=== PATIENT | female | born 1945 | race Caucasian/White ===

== ENCOUNTER 2022-06-14 11:00 | Outpatient (REF) | payer MEDICARE, SELFPAY ==
[2022-06-14 13:56] LABS: MANUAL DIFF FLAG NO
[2022-06-14 14:25] LABS: Basophils Absolute Auto 0.1 X10*3/uL (0.0-0.2); Basophils Percent Auto 1.6 % (0-2); Eosinophils Absolute Auto 0.1 X10*3/uL (0.0-0.4); Hematocrit 43.9 % (37.0-47.0); Hemoglobin 14.6 g/dl (12.0-16.0); Lymphocytes Absolute Auto 1.1 X10*3/uL (1.2-4.9); Lymphocytes Percent Auto 24.7 % (20-40); Mean Corpuscular HGB Conc 33.3 g/dl (31.0-35.0); Mean Corpuscular Hemoglobin 31.7 pg (27.0-33.0); Mean Corpuscular Volume 95.4 fL (80.0-98.0); Mean Platelet Volume 10.7 fL (9.4-12.3); Monocytes Absolute Auto 0.4 X10*3/uL (0.1-1.2); Monocytes Percent Auto 8.1 % (2-11); Neutrophils Absolute Auto 2.7 x10*3/uL (2.0-8.3); Neutrophils Percent Auto 62.6 % (45-73); Platelet Count 259 X10*3/uL (160-400); Red Cell Distribution Width 12.2 % (11.0-16.0); White Blood Count 4.3 X10*3/uL (4.8-10.8)
[2022-06-14 14:34] LABS: Cholesterol 274 mg/dL; HDL Cholesterol 74 mg/dL; LDL Cholesterol Calculated 172 mg/dl; Triglycerides 141 mg/dL
[2022-06-14 14:58] LABS: Thyroid Stimulating Hormone 1.22 uIU/mL (0.32-4.0); Vitamin D 25-OH Total 33.6 ng/mL (>30)
== END 2022-06-14 11:01 | disposition home or self-care (01) ==
LOC: HO.MANLDS 11:00
PROVIDERS: Visit Provider Internal Medicine
DX: Z00.01 Encounter for general adult medical examination with abnormal findings (principal)
CPT/HCPCS: 36415; 80061; 82306; 84443; 85025

== ENCOUNTER 2024-03-05 11:47 | Outpatient (REF) | payer MEDICARE, SELFPAY ==
[2024-03-05 13:31] LABS: MANUAL DIFF FLAG NO
[2024-03-05 13:50] LABS: Basophils Absolute Auto 0.1 X10*3/uL (0.0-0.2); Basophils Percent Auto 1.5 % (0-2); Eosinophils Percent Auto 0.8 % (0-4); Hematocrit 46.1 % (37.0-47.0); Hemoglobin 15.5 g/dl (12.0-16.0); Imm Gran Abs Auto 0.01 X10*3/uL (0.00-0.03); Imm Gran Pct Auto 0.2 % (0.0-0.4); Lymphocytes Absolute Auto 1.2 X10*3/uL (1.2-4.9); Lymphocytes Percent Auto 25.6 % (20-40); Mean Corpuscular HGB Conc 33.6 g/dl (31.0-35.0); Mean Corpuscular Hemoglobin 31.8 pg (27.0-33.0); Mean Corpuscular Volume 94.7 fL (80.0-98.0); Mean Platelet Volume 10.6 fL (9.4-12.3); Monocytes Absolute Auto 0.4 X10*3/uL (0.1-1.2); Monocytes Percent Auto 8.5 % (2-11); Neutrophils Absolute Auto 3.1 x10*3/uL (2.0-8.3); Neutrophils Percent Auto 63.4 % (45-73); Platelet Count 261 X10*3/uL (160-400); Red Blood Count 4.87 X10*6/uL (4.20-5.50); White Blood Count 4.8 X10*3/uL (4.8-10.8)
[2024-03-05 14:33] LABS: Alanine Aminotransferase 13 U/L (0-31); Albumin Level 4.4 g/dL (3.5-5.0); Alkaline Phosphatase 89 U/L (39-117); Anion Gap 13 (12-20); Aspartate Amino Transferase 26 U/L (5-31); Bilirubin Total 0.7 mg/dL (0.0-1.0); Blood Urea Nitrogen 13 mg/dL (9-16); Calcium 9.8 mg/dL (8.4-10.2); Carbon Dioxide 25 mmol/L (22-29); Chloride 108 mmol/L (96-108); Cholesterol 247 mg/dL (<200); Estimated Glomerular Filt Rate > 60; Glucose Random 91 mg/dL (60-115); HDL Cholesterol 72 mg/dL (>40); LDL Cholesterol Calculated 152 mg/dL (<100); Potassium 4.4 mmol/L (3.3-5.1); Sodium 142 mmol/L (135-145); Total Protein 7.4 g/dL (6.5-8.0); Triglycerides 116 mg/dL (<150)
[2024-03-05 15:02] LABS: Vitamin B12 458 pg/mL (200-900)
== END 2024-03-05 11:48 | disposition home or self-care (01) ==
LOC: HO.MANLDS 11:47
PROVIDERS: Visit Provider Internal Medicine
DX: Z00.01 Encounter for general adult medical examination with abnormal findings (principal); Z20.2 Contact with and (suspected) exposure to infections with a predominantly sexual mode of transmission
CPT/HCPCS: 36415; 80053; 80061; 82306; 82607; 85025

== ENCOUNTER 2025-07-09 18:14 | Outpatient (REF) | payer MEDICARE, SELFPAY ==
[2025-07-09 18:17] LABS: MANUAL DIFF FLAG NO
--- OUTSIDE RECORDS SUMMARY | 2025-07-09 18:18 | XMS_ITS | Encounter Summary ---
Author Organization [facility] Address [address] [place] [address] [address] [place] [address] Phone Care Team Providers Care Linotype Worker Name Role Phone Bigda, Willard A DO Unavailable Bigda, Willard A DO Unavailable Bigda, Willard A DO Primary Care Provider [phone] Bigda, Willard A DO Primary Care Provider [phone] Encounter Details Date Type Department Care Team (Latest Contact Info) Description 12/01/2021 Transcribe Orders Virtual Department [address] [place] [address] Maggie Obrien PA [address] [place] [address] [place] [address] Benign lipomatous neoplasm of skin and subcutaneous tissue of right leg (Primary Dx) Social History Tobacco Use Types Packs/Day Years Used Date Smoking Tobacco: Never Assessed Comments No Sex and Gender Information Value Date Recorded Sex Assigned at Not on file Legal Sex Female 10:06 PM EDT Gender Identity Not on file Sexual Orientation Straight 11/17/2021 10 :25 AM EST documented as of this encounter Plan of Treatment Not on file documented as of this encounter Results * US LOWER EXTREMITY NON-VASCULAR LIMITED (RIGHT) (12/09/2021 1:13 PM EST) Anatomical Region Laterality Modality Hip Right, Thigh Right, Knee Right, Leg Right, Ankle Right, Foot Right Ultrasound 12/09/2021 2:02 PM EST Impressions 12/09/2021 2:04 PM EST Upper right thigh lump corresponds to a probable 5 cm benign lipoma. No suspicious features. Clinical follow-up recommended. Narrative 12/09/2021 2:04 PM EST TECHNIQUE: US LOWER EXTREMITY NON-VASCULAR LIMITED (RIGHT) Focused sonographic evaluation of the upper right thigh lump COMPARISON: None. FINDINGS: At the site of concern there is a ill-defined ovoid homogeneous isoechoic soft tissue masslike area spanning 5 cm in maximal dimension. No vascularity or shadowing. Procedure Note Yousuf Ron MD - 12/09/2021 TECHNIQUE: US LOWER EXTREMITY NON-VASCULAR LIMITED (RIGHT) Focused sonographic evaluation of the upper right thigh lump COMPARISON: None. FINDINGS: At the site of concern there is a ill-defined ovoid homogeneous isoechoicsoft tissue masslike area spanning 5 cm in maximal dimension. Novascularity or shadowing. IMPRESSION: Upper right thigh lump corresponds to a probable 5 cm benign lipoma. Nosuspicious features. Clinical follow-up recommended. Maggie CRAIG IMG US EXTREMITY Final Resu lt documented in this encounter Visit Diagnoses Diagnosis Benign lipomatous neoplasm of skin and subcutaneous tissue of right leg- Primary Benign lipomatous neoplasm of skin and subcutaneous tissue of right leg documented in this encounter Care Teams Linotype Worker Relationship Specialty Start Date End Date Willard Munoz DO PCP - General Internal Medicine 08/02/17 02/28/25 Willard Munoz DO [address] [place] [address] PCP - General Internal Medicine 03/01/25 Willard Munoz DO [email or web address] Historical LMR Provider 07/24/17 Willard Munoz DO [email or web address] Internal Medicine 08/02/17 documented as of this encounter Additional Source Comments The information contained in this document represents components of the legal health record. It is not the complete legal health record.[facility]
--- OUTSIDE RECORDS SUMMARY | 2025-07-09 18:18 | XMS_ITS | Encounter Summary ---
Author Organization [facility] Address [address] [place] [address] [place] [address] Phone Care Team Providers Care Personnel Placement Specialist Name Role Phone Tammy, Willard Bruce DO Unavailable Bigda, Willard A DO Unavailable Bigda, Willard A DO Primary Care Provider [phone] Bigda, Willard A DO Primary Care Provider [phone] Encounter Details Date Type Department Care Team (Late st Contact Info) Description 03/08/2022 Transcribe Orders Virtual Department [address] [place] [address] Tammy, Willard Bruce, DO [address] [facility] [place] [address] [place] [address] [email or web address] Abnormal mammogram (Primary Dx) Social History Tobacco Use Types Packs/Day Years Used Date Smoking Tobacco: Never Alcohol Use Standard Drinks/Week Comments Not Currently 0 (1 standard drink = 0.6 oz pur e alcohol) recovering from knee surgery Comments No Sex and Gender Information Value Date Recorded Sex Assigned at Not on file Legal Sex Female 10:06 PM EDT Gender Identity Not on file Sexual Orientation Straight 11/17/2021 10 :25 AM EST documented as of this encounter Plan of Treatment Not on file documented as of this encounter Results * BI MAMMOGRAM DIAGNOSTIC WITH TOMOSYNTHESIS WITH CAD (LEFT) (03/30/2022 9:22 AM EDT) Anatomical Region Laterality Modality Breast Left Left Mammography 03/30/2022 9:35 AM EDT Impressions 03/30/2022 9:42 AM EDT Focal asymmetry in the upper left breast is very likely benign. A six-month follow-up left diagnostic mammogram is recommended. Findings and recommendation conveyed to the patient before she left the clinic. BI-RADS CATEGORY: 3 - Probably benign finding. Short interval follow up suggested. There are scattered fibroglandular densities. Narrative 03/30/2022 9:42 AM EDT HISTORY: Abnormal left screening mammogram. COMPARISON: Prior mammograms as far back as 03/16/2004 and as recent as 03/08/2022 FINDINGS: The previously described 1.4 cm asymmetry in the upper aspect of the breast on the left MLO view of 03/08/2022 does not appear to persist and likely represents superimposed fibroglandular tissue. No evidence of an underlying mass or architectural distortion. Willard Munoz DO IM MG EXAMS Final Result documented in this encounter Visit Diagnoses Diagnosis Abnormal mammogram- Primary Abnormal mammogram, unspecified Abnormal mammogram Abnormal mammogram, unspecified documented in this encounter Care Teams Personnel Placement Specialist Relationship Specialty Start Date End Date Willard Munoz DO PCP - General Internal Medicine 08/02/17 02/28/25 Willard Munoz DO [address] [place] [address] PCP - General Internal Medicine 03/01/25 Willard Munzo DO Historical LMR Provider 07/24/17 Willard Munoz DO Internal Medicine 08/02/17 documented as of this encounter Additional Source Comments The information contained in this document represents components of the legal health record. It is not the complete legal health record.[facility]
--- OUTSIDE RECORDS SUMMARY | 2025-07-09 18:18 | XMS_ITS | Encounter Summary ---
Author Organization [facility] Address [address] [place] [address] [place] [address] Phone Care Team Providers Care Timing Inspector Name Role Phone Willard Munoz DO Unavailable Deb Aguilera SKI INSTRUCTOR Unavailable Vanessa Oviedo MD Unavailable Amairani Jaimes RDCS Unavailable [email or web address] Willard Munoz DO Unavailable Tammy Willard Teo DO Primary Care Provider [phone] Willard Munoz DO Primary Care Provider [phone] Reason for Referral * Physical Therapy (Elective) - Closed Specialty Diagnoses / Procedures Referred By Josr rogers Referred To Contact Physical Therapy Diagnoses Encounter for rehabilitation Right Knee TKA on 05/14/2021 ROM , Strengthening , gait Adan Palencia MD [address] [place] [address] Phone: tel: fax: [facility] [address] [place] [address] Phone: tel: Referral ID Status Reason Start Date Expiration Date Visits Re quested Visits Authorized [id number] Closed 03/31/2021 10/08/2021 99 99 Encounter Details Date Type Department Care Team (Latest Contact Info) Description 03/31/2021 Transcribe Orders [facility] [address] [place] [address] Adan Palencia MD [facility] Luis Benitez [facility] [address] [place] [address] Encounter for rehabilitation (Primary Dx) Social History Tobacco Use Types Packs/Day Years Used Date Smoking Tobacco: Never Assessed Comments No Sex and Gender Information Value Date Recorded Sex Assigned at Not on file Legal Sex Female 10:06 PM EDT Gender Identity Not on file Sexual Orientation Straight 11/17/2021 10 :25 AM EST documented as of this encounter Plan of Treatment Scheduled Referrals Name Type Priority Associated Diagnoses Orde r Schedule Ambulatory referral to [facility] Physical Therapy Outpatient Referral Routine Encounter for rehabilitation Ordered: 03/31/2021 documented as of this encounter Visit Diagnoses Diagnosis Encounter for rehabilitation- Primary documented in this encounter Care Teams Timing Inspector Relationship Specialty Start Date End Date Willard Munoz DO PCP - General Internal Medicine 08/02/17 02/28/25 Willard Munoz DO [address] [place] [address] PCP - General Internal Medicine 03/01/25 Willard Munoz DO Historical LMR Provider 07/24/17 Deb Aguilera NP [address] [place] [address] [email or web address] Historical LMR Provider 07/24/17 2 Vanessa Oviedo MD [address] [address] [email or web address] Historical LMR Provider 07/24/17 10/16/21 Amairani Jaimes, NAA [email or web address] Historical LMR Provider 07/24/17 10/16/21 Willard Munoz DO [email or web address] Internal Medicine 08/02/17 documented as of this encounter Additional Source Comments The information contained in this document represents components of the legal health record. It is not the complete legal health record.[facility]
--- OUTSIDE RECORDS SUMMARY | 2025-07-09 18:18 | XMS_ITS | Encounter Summary ---
Author Organization [facility] Address [address] [place] [address] [place] [address] Phone Care Team Providers Care Roof Foreman Name Role Phone Tammy Willard Bruce DO Unavailable Deb Aguilera COUNTERINTELLIGENCE ANALYST Unavailable [phone] Vanessa Oviedo MD Unavailable Amairani Jaimes RDCS Unavailable [email or web address] Tammy Willard Teo DO Unavailable Willard Munoz DO Primary Care Provider [phone] Willard Munoz DO Primary Care Provider [phone] Encounter Details Date Type Department Care Team (Late st Contact Info) Description 07/26/2021 Transcribe Orders Virtual Department [address] [place] [address] Willard Munoz DO [address] [facility] [address] [place] [address] [email or web address] Breast screening (Primary Dx) Social History Tobacco Use Types [...] documented as of this encounter Results * (ABNORMAL) BI MAMMOGRAM SCREENING WITH TOMOSYNTHESIS WITH CAD (BILATERAL) (03/08/2022 8:37 AM EDT) Anatomical Region Laterality Modality Breast Left, Breast Right, Breast Bilateral Bila teral Mammography 03/08/2022 12:0 2 PM EDT Impressions 03/08/2022 12:11 PM EDT RIGHT BREAST: Negative, no evidence of malignancy. Normal interval follow-up is recommended in 12 months. LEFT BREAST: 1.4 cm asymmetry in the upper breast at 12.4 cm from the nipple on MLO view. Patient will be called back for additional imaging including spot compression in the MLO (upper breast) and the (lateral breast). Bi-RADS: BI-RADS CATEGORY: 0 - Incomplete. Need additional imaging evaluation. DENSITY: There are scattered fibroglandular densities. RIGHT RECOMMENDATION DUE DATE: 12 Months Recommendation: Right Mammography Screening LEFT RECOMMENDATION DUE DATE: 1 Month Recommendation: Left Additional Imaging Narrative 03/08/2022 12:11 PM EDT STUDY: Bilateral screening mammography with tomosynthesis and CAD TECHNIQUE: Bilateral full-field digital screening mammography is obtained and read in conjunction with computer-aided detection. Tomosynthesis as well as 2-D C view imaging were obtained. COMPARISON: Comparison made to multiple prior, most recent February 15, 2021, and most remote September 05, 2014. BREAST COMPOSITION: There are scattered areas of fibroglandular density RIGHT BREAST: No significant masses, suspicious calcifications or other abnormalities are seen. LEFT BREAST: There is approximately 1.4 cm asymmetry in the upper breast at approximately 12.4 cm from the nipple on the MLO (tomosynthesis MLO 32/76), without definite correlate on the CC view. No suspicious calcifications are seen. Procedure Note Jaida Singh MD - 03/08/2022 STUDY: Bilateral screening mammography with tomosynthesis and CAD TECHNIQUE: Bilateral full-field digital screening mammography is obtainedand read in conjunction with computer-aided detection. Tomosynthesis aswell as 2-D C view imaging were obtained. COMPARISON: Comparison made to multiple prior, most recent February 15, 2021,and most remote September 05, 2014. BREAST COMPOSITION: There are scattered areas of fibroglandulardensity RIGHT BREAST: No significant masses, suspicious calcifications or otherabnormalities are seen. LEFT BREAST: There is approximately 1.4 cm asymmetry in the upper breastat approximately 12.4 cm from the nipple on the MLO (tomosynthesis MLO32/76), without definite correlate on the CC view. No suspiciouscalcifications are seen. IMPRESSION: RIGHT BREAST: Negative, no evidence of malignancy. Normal intervalfollow-up is recommended in 12 months. LEFT BREAST: 1.4 cm asymmetry in the upper breast at 12.4 cm from thenipple on MLO view. Patient will be called back for additional imagingincluding spot compression in the MLO (upper breast) and the (lateralbreast). Bi-RADS: BI-RADS CATEGORY: 0 - Incomplete. Need additional imagingevaluation. DENSITY: There are scattered fibroglandular densities. RIGHT RECOMMENDATION DUE DATE: 12 Months Recommendation: Right Mammography Screening LEFT RECOMMENDATION DUE DATE: 1 Month Recommendation: Left Additional Imaging Willard Munoz DO IMG MG EXAMS Final Result documented in this encounter Visit Diagnoses Diagnosis Breast screening- Primary Breast screening, unspecified Breast screening Breast screening, unspecified documented in this encounter Care Teams Roof Foreman Relationship Specialty Start Date End Date Willard Munoz DO PCP - General Internal Medicine 08/02/17 02/28/25 Willard Munoz DO [address] [place] [address] PCP - General Internal Medicine 03/01/25 Willard Munoz DO Historical LMR Provider 07/24/17 Deb Aguilera NP [address] [place] [address] [email or web address] Historical LMR Provider 07/24/17 2 Vanessa Oviedo MD 22 [facility] [address] [place] [address] Historical LMR Provider 07/24/17 10/16/21 Amairani Jaimes RDCS Historical LMR Provider 07/24/17 10/16/21 Willard Munoz DO [email or web address] Internal Medicine 08/02/17 documented as of this encounter Additional Source Comments The information contained in this document represents components of the legal health record. It is not the complete legal health record.[facility]
--- OUTSIDE RECORDS SUMMARY | 2025-07-09 18:18 | XMS_ITS | Encounter Summary ---
Author Organization [facility] Address [address] [place] [address] [place] [address] Phone Care Team Providers Care Director Meetings Name Role Phone Carlos EduardoWillard andrews DO Unavailable Deb Aguilera CHIEF COMPRESSOR STATION ENGINEER Unavailable [phone] Vanessa Oviedo MD Unavailable Amairani Jaimes RDCS Unavailable [email or web address] Tammy Willard Bruce DO Unavailable Willard Munoz Teo DO Primary Care Provider [phone] Willard Munoz Teo DO Primary Care Provider [phone] Encounter Details Date Type Department Care Team (Late st Contact Info) Description 06/10/2020 Transcribe Orders Virtual Department [address] [place] [address] Willard Munoz DO [address] [facility] [place] [address] Other specified disorders of bone density and structure, unspecified site (Primary Dx); Osteoarthritis of knee, unspecified laterality, unspecified osteoarthritis type Social History Tobacco Use Types Packs/Day Years [...] documented as of this encounter Results * XR KNEE 4 OR MORE VIEWS (BILATERAL) (06/25/2020 9:30 AM EDT) Anatomical Region Laterality Modality Knee Bilateral, Knee Right, Knee Left Computed Radiography 06/25/2020 9:34 AM EDT Impressions 06/25/2020 9:37 AM EDT Prominent bilateral osteoarthritis, most pronounced in the right medial and patellofemoral compartments, without traumatic or destructive bony abnormality apparent. Probable small suprapatellar effusions. POS - [id number] Narrative 06/25/2020 9:37 AM EDT COMPARISON: None FINDINGS: AP upright, tunnel, lateral, and specialized patellar views of both knees were obtained. There are mild varus deformities bilaterally. On the right there is marked narrowing of the medial knee compartment with sclerosis of the opposing articular surfaces and diffuse periarticular spurring along the margins of all compartments. There appear to be cystic changes in the lower pole of the patella. Equivocal small suprapatellar effusion identified. No loose joint body seen. On the left there is marked narrowing of the medial knee compartment with less deformity than present on the right. There is sclerosis of the opposing articular surfaces and diffuse periarticular spurring. Equivocal trace suprapatellar effusion. No opaque loose joint body noted. No loose body identified. Procedure Note Sundar Aguirre MD - 06/25/2020 COMPARISON: None FINDINGS: AP upright, tunnel, lateral, and specialized patellar views of both kneeswere obtained. There are mild varus deformities bilaterally. On the right there is marked narrowing of the medial knee compartment withsclerosis of the opposing articular surfaces and diffuse periarticularspurring along the margins of all compartments. There appear to be cysticchanges in the lower pole of the patella. Equivocal small suprapatellareffusion identified. No loose joint body seen. On the left there is marked narrowing of the medial knee compartment withless deformity than present on the right. There is sclerosis of theopposing articular surfaces and diffuse periarticular spurring. Equivocaltrace suprapatellar effusion. No opaque loose joint body noted. No loosebody identified. IMPRESSION: Prominent bilateral osteoarthritis, most pronounced in the right medialand patellofemoral compartments, without traumatic or destructive bonyabnormality apparent. Probable small suprapatellar effusions. POS - [id number] us Willard Munoz DO IMG XR LOWER EXTREMITY Final Res ult * BD DXA AXIAL (SPINE) WITH HIP (06/25/2020 9:18 AM EDT) Anatomical Region Laterality Modality Bone Density Bone Density 06/25/2020 9:43 AM EDT Impressions 06/25/2020 9:47 AM EDT Osteopenia. Decrease in density of significant level in all sites assessed. Density focally in the right femoral neck region reaches the osteoporosis level. Narrative 06/25/2020 9:47 AM EDT This is a 74-year-old postmenopausal white female with a perceived height loss of 2 inches over her lifetime. She reports no family history of osteoporosis. Comparison is made to prior study of August 27, 2012, the only available. Evaluation of the lumbar spine and hips was performed and appears to be technically adequate. Total bone mineral density in the L1-L4 vertebral bodies was calculated at 1.019 gm/cm2 with a T score of -0.3. This falls within the WHO classification of normal. Density in the elevated due to endplate degenerative changes across L2-3 on the right and at the posterior elements on the left at L4-5 but the appearance is similar to prior. Since the prior study there is a decrease in density of 6.7%, which is statistically significant at the 95% confidence interval. Total bone mineral density in the right proximal femur was calculated at 0.797 gm/cm2 with a T-score of -1.2 falling within the WHO classification of osteopenia. Patient's Z score is 0.5. Since prior study there is been a decrease in density of 6.5% which is significant. Right femoral neck bone mineral density was calculated at 0.568 gm/cm2 with a T-score of -2.5. Total bone mineral density in the left proximal femur was calculated at 0.824 gm/cm2 with a T-score of -1.0 falling within the WHO classification of osteopenia. Patient's Z score is 0.7. Since prior study there is a decrease in density of 6.9% which is significant. Bone mineral density in the left femoral neck was calculated at 0.590 gm/cm2 with a T-score of -2.3. Procedure Note Ramana Mathias MD - 06/25/2020 This is a 74-year-old postmenopausal white female with a perceived heightloss of 2 inches over her lifetime. She reports no family history ofosteoporosis. Comparison is made to prior study of August 27, 2012, theonly available. Evaluation of the lumbar spine and hips was performed and appears to betechnically adequate. Total bone mineral density in the L1-L4 vertebral bodies was calculated at1.019 gm/cm2 with a T score of -0.3. This falls within the WHOclassification of normal. Density in the elevated due to endplatedegenerative changes across L2-3 on the right and at the posteriorelements on the left at L4-5 but the appearance is similar to prior. Sincethe prior study there is a decrease in density of 6.7%, which isstatistically significant at the 95% confidence interval. Total bone mineral density in the right proximal femur was calculated at0.797 gm/cm2 with a T-score of -1.2 falling within the WHO classificationof osteopenia. Patient's Z score is 0.5. Since prior study there is buster decrease in density of 6.5% which is significant. Right femoral neckbone mineral density was calculated at 0.568 gm/cm2 with a T-score of-2.5. Total bone mineral density in the left proximal femur was calculated at0.824 gm/cm2 with a T-score of -1.0 falling within the WHO classificationof osteopenia. Patient's Z score is 0.7. Since prior study there is adecrease in density of 6.9% which is significant. Bone mineral density inthe left femoral neck was calculated at 0.590 gm/cm2 with a T-score of-2.3. IMPRESSION: Osteopenia. Decrease in density of significant level in all sitesassessed. Density focally in the right femoral neck region reaches theosteoporosis level. Willard Bruce Tammy SMITH IMG BD BONE DENSITY DEXA Final R esult documented in this encounter Visit Diagnoses Diagnosis Other specified disorders of bone density and structure, unspecified site- Primary Osteoarthritis of knee, unspecified laterality, unspecified osteoarthritis type Osteoarthritis of knee, unspecified laterality, unspecified osteoarthritis type Other specified disorders of bone density and structure, unspecified site documented in this encounter Care Teams Director Meetings Relationship Specialty Start Date End Date Willard Munoz DO PCP - General Internal Medicine 08/02/17 02/28/25 Willard Munoz DO [address] [place] [address] PCP - General Internal Medicine 03/01/25 Willard Munoz DO Historical LMR Provider 07/24/17 Deb Aguilera NP [address] [place] [address] [email or web address] Historical LMR Provider 07/24/17 2 Vanessa Oviedo MD [address] [address] Historical LMR Provider 07/24/17 10/16/21 Amairani Jaimes RDCS Historical LMR Provider 07/24/17 10/16/21 Willard Munoz DO Internal Medicine 08/02/17 documented as of this encounter Additional Source Comments The information contained in this document represents components of the legal health record. It is not the complete legal health record.[facility]
--- OUTSIDE RECORDS SUMMARY | 2025-07-09 18:18 | XMS_ITS | Encounter Summary ---
Author Organization [facility] Address [address] [place] [address] [place] [phone] Phone Care Team Providers Care Balloon Artist Name Role Phone Carlos EduardoWillard andrews DO Unavailable Deb Aguilera PLUG STITCHER Unavailable Vanessa Oviedo MD Unavailable Amairani Jaimes RDCS Unavailable [email or web address] Tammy Willard Teo DO Unavailable Willard Munoz DO Primary Care Provider [phone] Willard Munoz Teo DO Primary Care Provider [phone] Encounter Details Date Type Department Care Team (Late st Contact Info) Description 07/16/2018 Ancillary Orders Virtual Department [address] [place] [address] Willard Munoz DO [address] [place] [address] [email or web address] Breast screening Social History Tobacco Use Types Packs/Day Years [...] of this encounter Results * BI MAMMOGRAM SCREENING WITH TOMOSYNTHESIS WITH CAD (BILATERAL) (09/17/2018 8:19 AM EST) Anatomical Region Laterality Modality Breast Left, Breast Right, Breast Bilateral Bila teral Mammography 09/18/2018 5:51 PM EST Impressions 09/18/2018 5:57 PM EST No mammographic change indicative of malignancy. Routine screening is recommended. BI-RADS CATEGORY: 2 - Benign finding. DENSITY: There are scattered fibroglandular densities. POS - [id number] Narrative 09/18/2018 5:57 PM EST FINDINGS: Bilateral full-field digital screening mammography is obtained and read in conjunction with computer-aided detection. 3-D tomosynthesis as well as 2-D C view imaging is also performed. Comparison includes the most recent exam from 09/14/2017 and as far back as 08/27/2012. Breasts are composed of scattered fibroglandular tissue. Vascular calcifications and other scattered benign-appearing calcifications bilaterally. No new suspicious mass, suspicious microcalcifications, architectural distortion, focal skin thickening, or new asymmetry is detected. Procedure Note Дмитрий Tran MD - 09/18/2018 FINDINGS: Bilateral full-field digital screening mammography is obtained and read inconjunction with computer-aided detection. 3-D tomosynthesis as well as2-D C view imaging is also performed. Comparison includes the most recentexam from 09/14/2017 and as far back as 08/27/2012. Breasts are composed of scattered fibroglandular tissue. Vascularcalcifications and other scattered benign-appearing calcificationsbilaterally. No new suspicious mass, suspicious microcalcifications,architectural distortion, focal skin thickening, or new asymmetry isdetected. IMPRESSION: No mammographic change indicative of malignancy. Routine screening isrecommended. BI-RADS CATEGORY: 2 - Benign finding. DENSITY: There are scattered fibroglandular densities. POS - [id number] us Willard A Bigda DO IMG MG EXAMS Final Result documented in this encounter Visit Diagnoses Diagnosis Breast screening Breast screening, unspecified Breast screening Breast screening, unspecified documented in this encounter Care Teams Balloon Artist Relationship Specialty Start Date End Date Bigda, Willard ADO PCP - General Internal Medicine 08/02/17 02/28/25 Tammy Willard BruceDO [address] [place] [address] PCP - General Internal Medicine 03/01/25 Willard Munoz DO Historical LMR Provider 07/24/17 Deb Aguilera PLUG STITCHER [address] [place] [address] [email or web address] Historical LMR Provider 07/24/17 2 Vanessa Oviedo MD [address] [facility] [address] [place] [address] Historical LMR Provider 07/24/17 10/16/21 Amairani Jaimes, RDCS Historical LMR Provider 07/24/17 10/16/21 Willard Munoz DO Internal Medicine 08/02/17 documented as of this encounter Additional Source Comments The information contained in this document represents components of the legal health record. It is not the complete legal health record.[facility]
--- OUTSIDE RECORDS SUMMARY | 2025-07-09 18:18 | XMS_ITS | Encounter Summary ---
Author Organization [facility] Address [address] [place] [address] [place] [address] Phone Care Team Providers Care Application Integration Architect Name Role Phone Carlos EduardoWillard andrews Teo DO Unavailable Deb Aguilera NEGATIVE TURNER Unavailable Vanessa Oviedo MD Unavailable Amairani Jaimes RDCS Unavailable [email or web address] Tammy Willard Teo DO Unavailable Willard Munoz Teo DO Primary Care Provider [phone] Willard Munoz Teo DO Primary Care Provider [phone] Encounter Details Date Type Department Care Team (Late st Contact Info) Description 09/14/2021 Transcribe Orders Virtual Department [address] [place] [address] Willard Munoz DO [address] [facility] [place] [address] [place] [address] Age-related osteoporosis without current pathological fracture (Primary Dx) Social History Tobacco Use Types [...] documented as of this encounter Results * BD DXA AXIAL (SPINE) WITH HIP (11/25/2022 9:40 AM EST) Anatomical Region Laterality Modality Bone Density Bone Density 11/25/2022 3:02 PM EST Impressions 11/25/2022 3:10 PM EST Osteopenia based on the left femoral neck density. (This is a similar result to the study on 06/25/2020 but at that time the overall WHO classification was based on the total hip density). POS -[id number] Narrative 11/25/2022 3:10 PM EST This is a 77-year-old woman who reports a perceived height loss of about 2 inches. Currently on calcium supplementation. Steroid or hormone use question unanswered. Comparison : 06/25/2020. The L1, L3 and L4 lumbar levels and left hip were evaluated and felt to be technically adequate. TOTAL bone mineral density in the L1, L3 and L4 VERTEBRAL BODIES was calculated at 1.029 g/cm2 with a T score of -0.2, and a Z-score of 2.2. This falls within the WHO classification of normal . This represents a 3.0% increase density since 2020. Density of the left femoral NECK is 0.601g/cm2, T score -2.2, Z score -0.1. Density of the TOTAL PROXIMAL FEMUR is 0.823 g/cm2; T-score -1.0; Z-score 0.8. This falls within the WHO classification of osteopenia, based on femoral neck density . This is not a significant change from 2020. Procedure Note Carlos Enrique Bell MD - 11/25/2022 This is a 77-year-old woman who reports a perceived height lossof about 2 inches. Currently on calcium supplementation. Steroid or hormone use question unanswered. Comparison : 06/25/2020. The L1, L3 and L4 lumbar levels and left hip were evaluated and felt to betechnically adequate. TOTAL bone mineral density in the L1, L3 and L4 VERTEBRAL BODIES wascalculated at 1.029 g/cm2 with a T score of -0.2, and a Z-score of 2.2. This falls within the WHO classification of normal . This represents a 3.0% increase density since 2020. Density of the left femoral NECK is 0.601g/cm2, T score -2.2, Z score-0.1. Density of the TOTAL PROXIMAL FEMUR is 0.823 g/cm2; T-score -1.0;Z-score 0.8. This falls within the WHO classification of osteopenia, based on femoralneck density . This is not a significant change from 2020. IMPRESSION: Osteopenia based on the left femoral neck density. (This is a similar result to the study on 06/25/2020 but at that time theoverall WHO classification was based on the total hip density). POS -[id number] us Willard Munoz DO IMG BD BONE DENSITY DEXA Final R esult documented in this encounter Visit Diagnoses Diagnosis Age-related osteoporosis without current pathological fracture- Primary Age-related osteoporosis without current pathological fracture documented in this encounter Care Teams Application Integration Architect Relationship Specialty Start Date End Date Willard Munoz DO PCP - General Internal Medicine 08/02/17 02/28/25 Willard Munoz DO [address] [place] [id number] PCP - General Internal Medicine 03/01/25 Willard Munoz DO Historical LMR Provider 07/24/17 Deb Aguilera NP [address] [place] [address] [email or web address] Historical LMR Provider 07/24/17 2 Vanessa Oviedo MD [address] [facility], [address] [place] [address] [email or web address] Historical LMR Provider 07/24/17 10/16/21 Amairani Jaimes, NAA [email or web address] Historical LMR Provider 07/24/17 10/16/21 Willard Munoz DO [email or web address] Internal Medicine 08/02/17 documented as of this encounter Additional Source Comments The information contained in this document represents components of the legal health record. It is not the complete legal health record.[facility]
--- OUTSIDE RECORDS SUMMARY | 2025-07-09 18:18 | XMS_ITS | Data Portability ---
Author Organization [facility], Telehealth Patient Home Address [address] [place] [address] Assessment Encounter Date Assessment Date Assessment LastModified by Organization Details LastModified Time 07/07/2025 07/07/2025 Patient presente d to office today for their Medicare Annual Wellness Visit. Education was provided on healthy nutrition, including a diet rich in fruits and vegetables, minimizing simple carbohydrates, salt, and saturated fats. Encouraged regular cardiovascular exercise such as walking at least 30 minutes daily, 5 times per week. Emphasized preventive health measures and educated pt on fall prevention and community-based lifestyle interventions to help reduce health risks and promote healthy living. Not available 06/18/2025 15:18:07 07/09/2025 07/09/2025 [id number] [place] [id number] (NURSE CARE MANAGER) : MDM LOW MUST MEET 2 OF 3 ELEMENTS: PROBLEMS, DATA OR RISK ELEMENT 1: PROBLEMS ADDRESSED (LOW): 2 OR MORE SELF-LIMITED OR MINOR PROBLEMS OR 1 STABLE CHRONIC ILLNESS OR 1 ACUTE UNCOMPLICATED ILLNESS OR INJURY ELEMENT 2: DATA TO BE REVISED AND ANALYZED (LOW) MUST MEET 1 OF 2 CATEGORIES: CATEGORY 1. REVIEW OF PRIOR EXTERNAL NOTES/RESULTS, ORDERING OF TEST(S) CATEGORY 2. ASSESSMENT REQUIRING INDEPENDENT HISTORIAN(S) INCLUDE WHO THE HISTORIAN IS AND RELATION TO PT AND WHY PT IS UNABLE TO GIVE COMPLETE HISTORY ELEMENT 3: RISK (LOW) RISK OF COMPLICATIONS AND/OR MORBIDITY OR MORTALITY OF PATIENT MANAGEMENT PROVIDER MUST THOROUGHLY DOCUMENT ALL OF THE ELEMENTS COVERED Not available 07/09/2025 13:28:46 Plan of Treatment Reminders Order Date Submit Date Provider Last Modified By Organization Details Last Modified Time Details Appointments PROCEDURE 15 2024 09:00A Rom THAPA Not available Not available Not available FOLLOW UP 15 2024 10:00A M DR THAPA Not available Not available Not available MEDICARE ANNUAL WELLNESS 2025 10:30A M DR THAPA Not available Not available Not available Lab lipid panel, blood 2024 [facility], [address] [place] [address], [id number], 07/07/2025 15:33:00 vitamin B12 + folate, serum or blood 2024 [facility], [address] [place] [address], [id number], 07/07/2025 15:33:00 hemoglobi n, gastroint estinal, stool 2024 [facility], [address] [place] [address], [id number], 07/07/2025 15:33:00 CBC w/ auto diff 2024 [facility], [address] [place] [address], [id number], 07/07/2025 15:33:00 CMP, serum or plasma 2024 [facility], [address] [place] [address], [id number], 07/07/2025 15:33:00 Referral None recorded. Procedures cerumen removal using irrigatio n (PROC) 2024 025 Not available 07/09/2025 13:55:06 cerumen removal (PROC) 2024 025 Not available 07/09/2025 13:55:07 Surgeries None recorded. Imaging bone density 2024 [facility] - [facility] Central Scheduling (Not Breast), [address] [place], [address], 07/07/2025 15:58:58 Medication Orders doxycycli ne hyclate 100 mg tablet 2024 025 [facility]/Pharmacy #2024, [address] [place], [address], 07/09/2025 13:32:28 Medrol (Bari) 4 mg tablets in a dose pack 2024 025 [facility] [address] [place], [address], 06/24/2025 10:22:40 tramadol 50 mg tablet 2024 025 [facility] [address] [place], [address], 06/16/2025 05:01:13 cefdinir 300 mg capsule 2024 025 [facility] [address] [place], [address], 06/24/2025 10:22:17 Patient TargetsNo targets recorded. Patient Instructions Encounter Date Encounter Id Patient Instructions Last Modified By Organization Details Last Modified Time 07/07/2025 [id number] advance care planning: care instructions Not available 07/07/2025 15:31:29 Discussed and explained advance directives such as standard forms to the . Face to face discussion lasted for a duration of ___ minutes. Not available 06/18/2025 15:18:07 07/09/2025 [id number] earwax blockage in children: care instructions Not available 07/09/2025 13:32:25 Reason for Referral None Reported. Problems Name Problem SNOMED Code Status Onset Date Resolution Date Notes Provider Name and Address Organization Details Recorded Time Allergic rhinitis 37214662 Active 2017 Not Available [facility] 4 10:21:53 Gastroeso phageal reflux disease 062496132 Active 2017 Not Available [facility] 4 10:21:53 Diverticu lar disease 831672939 Active 2017 Not Available [facility] 4 10:21:53 Psoriasis 0879300 Active 2017 Not Available [facility] 4 10:21:53 Eczema 70736805 Active 2017 Not Available [facility] 4 10:21:53 Strain of hamstring muscle 385290885720 Active 2017 Not Available [facility] 4 10:21:53 Osteoarth ritis of knee 962357199 Active 2017 Not Available [facility] 4 10:21:53 Osteoporo sis 12680569 Active 2020 Not Available [facility] 4 10:21:53 Edema of right lower leg 273058812 Active 2020 Not Available [facility] 4 10:21:53 Lumbago with sciatica 456198768 Active 2021 Not Available [facility] 4 10:21:53 Lumbago with sciatica 441600415 Active 2021 Not Available [facility] 4 10:21:53 Pain of right hip joint 274796967272 102 Active 2021 Not Available [facility] 4 10:21:53 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 30409519 Active 2021 Not Available [facility] 4 10:21:53 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 96550882 Active 2021 Not Available [facility] 4 10:21:52 Edema of lower extremity 626505970 Active 2022 Not Available [facility] 4 10:21:52 Onychomyc osis of toenails 961443422 Active 2022 Not Available [facility] 4 10:21:53 Tinea pedis 3448630 Active 2022 Not Available [facility] 4 10:21:53 Erythrome lalgia 49368866 Active 2022 Not Available [facility] 4 10:21:53 Abscess of skin and/or subcutane ous tissue 14126266 Active 2022 Not Available [facility] 4 10:21:53 Abscess of groin 16524997 Active 2022 Not Available [facility] 4 10:21:53 Abscess 800307228 Active 2022 Not Available [facility] 4 10:21:52 Cobalamin deficienc y 164594468 Active 2022 Not Available [facility] 4 10:21:52 Umbilical hernia 207673507 Active 2022 Not Available [facility] 4 10:21:53 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 97644217 Active 2023 Willard Thapa DO [address] [place] [address], [address], [facility] 4 11:40:33 Acute right otitis media 201074965 Active 2024 Willard Thapa DO [address] [place] [address], [address], [facility] 5 09:15:31 Acute irritant otitis externa 614993864 Active 2024 Willard Thapa DO [address] [place] [address], [address], [facility] 5 12:42:24 Foreign body in right ear 338813395613 48824 Active 2024 RAFA BOATENG [address] [place] [address], [address], [facility] 5 14:13:45 Tinnitus of right ear 662950837228 8 Active 2024 RAFA BOATENG [address] [place] [address], [address], [facility] 5 14:14:22 Impacted cerumen in right ear 944933033691 9103 Active 2024 Willard Thapa DO [address] [place] [address], [address], [facility] 5 13:29:20 Problem Notes None recorded. Procedures Surgical History Date Name Laterality Status Provider Name and Address Organization Details Recorded Time 07/09/20 25 Removal of foreign body in ear canal completed Willard TeoJono Thapa, DO [address] [facility], [place], [address], [facility] 07/09/2025 13:28:36 11/21/19 15 Colonoscopy completed Rosalinda Lorenz [facility] 11/11/2019 09:04:13 Imaging Results None recorded. Procedure Notes None recorded. Medical Equipment None Reported. Allergies Allergen ID Allergen Name Allergen Category Reaction Reaction Severity Criticality Documentation Date Start Date Code Code System Note Provider Name and Address Organization Details Recorded Time 2505 Substance with sulfonami de structure and antibacte rial mechanism of action (substanc e) medicatio n Not available Not available Not available 08/21/2018 [id number] SNOMED Rosalinda Lorenz [facility] 8 08:27:41 Medications Name Sig Start Date Stop Date Status Note LastModified by Organization Details LastModified Time amoxicillin 500 mg capsule TAKE 4 CAPSULES BY MOUTH 1 HOUR PRIOR TO DENTAL WORK DIRECTED 06/24 completed Not Available Not Available Not Available prednisone 10 mg tablet 50 mg x 2 days40 mg x 2 days30 mg x 2 days20 mg x 2 days10 mg x 2 days 11/11 completed Not Available Not Available Not Available azithromyci n 250 mg tablet TAKE 2 TABLETS (500 MG) BY ORAL ROUTE ONCE DAILY FOR 1 DAY THEN 1 TABLET (250 MG) BY ORAL ROUTE ONCE DAILY FOR 4 DAYS 11/11 completed Not Available Not Available Not Available fluconazole 150 mg tablet TAKE 1 TABLET TODAY, TAKE 2ND TAB IN 72 HOURS 02/03 completed Not Available Not Available Not Available fluticasone propionate 0.05 % topical cream APPLY A THIN LAYER TO THE AFFECTED AREA(S) BY TOPICAL ROUTE ONCE DAILY ; RUB IN GENTLY AND COMPLETEL Y 11/24 completed Not Available Not Available Not Available meloxicam 15 mg tablet TAKE 1 TABLET BY MOUTH EVERY DAY 07/06 completed Not Available Not Available Not Available ondansetron HCl 4 mg tablet TAKE 1 TABLET BY MOUTH EVERY 8 HOURS NEEDED FOR NAUSEA AND VOMITING 03/05 completed Not Available Not Available Not Available alendronate 70 mg tablet TAKE 1 TABLET BY MOUTH WEEKLY 06/07 completed Not Available Not Available Not Available acetaminoph en 300 mg-codeine 30 mg tablet Take 1 tablet every 8 hours by oral route as needed for 7 days. 01/20 completed Not Available Not Available Not Available amlodipine 5 mg tablet TAKE 1 TABLET BY MOUTH EVERY DAY 05/03 completed Not Available Not Available Not Available ciprofloxac in 500 mg tablet Take 1 tablet every 12 hours by oral route for 7 days. 06/24 completed Not Available Not Available Not Available aspirin 81 mg tablet,ezra yed release Take 1 tablet every day by oral route. active Not Available Not Available No t Available tramadol 50 mg tablet Take 1 tablet every 6 hours by oral route as directed for 7 days. 06/16 completed Not Available Not Available Not Available spironolact one 25 mg tablet TAKE 1 TABLET BY MOUTH EVERY DAY active Not Available Not Available No t Available Macrobid 100 mg capsule Take 1 capsule every 12 hours by oral route for 7 days. 10/23 completed Not Available Not Available Not Available terbinafine HCl 250 mg tablet TAKE 1 TABLET BY MOUTH EVERY DAY 03/05 completed Not Available Not Available Not Available hydromorpho ne 2 mg tablet TAKE 1 TO 2 TABLETS BY MOUTH EVERY 4 HOURS NEEDED FOR SEVERE PAIN 05/03 completed Not Available Not Available Not Available gentamicin 0.3 % eye drops INSTILL 1 DROP INTO AFFECTED EYE(S) BY OPHTHALMI C ROUTE EVERY 4 HOURS x 7 days 10/30 completed Not Available Not Available Not Available aspirin 325 mg tablet,ezra yed release TAKE ONE TABLET TWICE A DAY FOR 30 DAYS ONLY. MEDICATIO N TO BE STARTED AFTER SURGERY. 07/05 completed Not Available Not Available Not Available meclizine 25 mg tablet TAKE 1 TABLET BY MOUTH THREE TIMES A DAY NEEDED FOR 10 DAYS; PRN 03/05 completed Not Available Not Available Not Available baclofen 10 mg tablet TAKE 1 TABLET BY MOUTH EVERY 8 HOURS NEEDED active Not Available Not Available No t Available amlodipine 10 mg tablet TAKE 1 TABLET BY MOUTH EVERY DAY 05/03 completed Not Available Not Available Not Available hydrocodone 7.5 mg-acetamin ophen 325 mg tablet TAKE 1 TABLET BY MOUTH FOUR TIMES A DAY WITH MEALS FOR 7 DAYS 05/03 completed Not Available Not Available Not Available cephalexin 500 mg capsule Take 1 capsule every 6 hours by oral route for 10 days. 03/05 completed Not Available Not Available Not Available pantoprazol e 40 mg tablet,ezra yed release TAKE 1 TABLET BY MOUTH EVERY DAY PRE-OP RX FOR AFTER SURGERY 05/03 completed Not Available Not Available Not Available docusate sodium 100 mg capsule TAKE 1 CAPSULE BY MOUTH TWICE A DAY MEDICATIO N TO BE STARTED AFTER SURGERY DIRECTED 07/05 completed Not Available Not Available Not Available gabapentin 300 mg capsule TAKE 1 CAPSULE BY MOUTH EVERY DAY 05/03 completed Not Available Not Available Not Available omeprazole 20 mg capsule,del ayed release TAKE 1 CAPSULE BY MOUTH EVERY DAY 2024 active Not Available Not Available Not Avai lable levofloxaci n 500 mg tablet TAKE 1 TABLET BY MOUTH EVERY DAY FOR 10 DAYS 02/03 completed Not Available Not Available Not Available methylpredn isolone 4 mg tablets in a dose pack TAKE 6 TABLETS ON DAY 1 DIRECTED ON PACKAGE AND DECREASE BY 1 TAB EACH DAY FOR A TOTAL OF 6 DAYS 06/24 completed Not Available Not Available Not Available ketoconazol e 2 % topical cream APPLY TO AFFECTED AREA EVERY DAY active Not Available Not Available No t Available cefdinir 300 mg capsule TAKE 1 CAPSULE BY MOUTH EVERY 12 HOURS FOR 10 DAYS 06/24 completed Not Available Not Available Not Available doxycycline hyclate 100 mg tablet Take 1 tablet twice a day by oral route for 10 days. 2024 active Not Available Not Available Not Avai lable naproxen 500 mg tablet TAKE 1 TABLET BY MOUTH TWICE A DAY FOR 10 DAYS 07/26 completed Not Available Not Available Not Available amoxicillin 875 mg-potassiu m clavulanate 125 mg tablet Take 1 tablet every 12 hours by oral route for 7 days. 10/30 completed Not Available Not Available Not Available oxycodone 5 mg tablet TAKE 1 TABLET BY MOUTH EVERY 4 HOURS FOR 7 DAYS NEEDED FOR MODERATE PAIN 07/26 completed Not Available Not Available Not Available neomycin-po lymyxin-hyd rocort 3.5 mg-10,000 unit/mL-1 % ear drops,susp PLACE 4 DROPS INTO THE RIGHT EAR 4 TIMES A DAY FOR 3 DAYS. 04/14 completed Not Available Not Available Not Available Calcium with Vitamin D 500 mg-200 unit tablet Take 1 tablet every day by oral route. 01/20 completed Not Available Not Available Not Available multivitami n 1 PO QD 04/14 completed Not Available Not Available Not Available Calcium 600 + D(3) 1 PO QD active Not Available Not Available Not Available Osteo Bi-Flex Take 2 tablets once a day 01/20 completed Not Available Not Available Not Available Flonase Allergy Relief 50 mcg/actuati on nasal spray,suspe nsion 1 SPRAY QD BY INTRANASA L 07/05 completed Not Available Not Available Not Available Readi-Cat 2 2 % (w/v) oral suspension PLEASE SEE ATTACHED FOR DETAILED DIRECTION S 03/05 completed Not Available Not Available Not Available Vitals Date Recorded Body height Body mass index (BMI) Body weight Heart rate Oxygen saturation Oxygen saturation in Arterial blood by Pulse oximetry Systolic And Diastolic Provider Name and Address Organization Details Last Updated DateTime 5 154.94 cm 44.6 kg/m2 324850. 8 g 81 /min 97 % 97 % 130/80 mm[Hg] Shannan Grier [facility] 5 09:04:22 Date Recorded Body height Body mass index (BMI) Body weight Oxygen saturation Oxygen saturation in Arterial blood by Pulse oximetry Heart rate Systolic And Diastolic Provider Name and Address Organization Details Last Updated DateTime 5 154.94 cm 44.4 kg/m2 314331. 93 g 95 % 95 % 80 /min 126/82 mm[Hg] Rissa Fajardo [facility] 5 10:25:26 Date Recorded Body height Body mass index (BMI) Body weight Oxygen saturation Oxygen saturation in Arterial blood by Pulse oximetry Heart rate Systolic And Diastolic Provider Name and Address Organization Details Last Updated DateTime 5 154.94 cm 45 kg/m2 687378. 98 g 97 % 97 % 68 /min 128/68 mm[Hg] Rissa Manjarrez [facility] 5 14:53:05 Social History Question Answer Notes LastModified by Organizat ion Details LastModified Time Tobacco Smoking Status Never Smoker Not Available [facility] 08/11/2020 03:36:23 What Is Your Level Of Caffeine Consumption? Moderate 3-4 Cups Coffee Per Day [id number] Information not available 08/11/2020 What Was The Date Of Your Most Recent Tobacco Screening? 07/07/2025 Information not available 07/07/2025 Sex: Unknown Functional Status Question Answer Note LastModified by Organizat ion Details LastModified Time Do you or have you ever used any other forms of tobacco or nicotine? No [email or web address] Information not available 05/03/2023 What is your level of alcohol consumption? Occasional [id number] Information not available 08/11/2020 What is your exercise level? None [id number] Information not available 08/11/2020 Mental Status None recorded. Family History Nothing Reported. Medical History No medical history recorded. Gynecological HistoryNo gynecological history recorded. Obstetrics History GPAL:G 0 P 0 0 0 0 Immunizations Vaccine Type Date Status Note Provider Nam e and Address Organization Details Recorded Time Influenza, split virus, quadrivalent, preservative 1 completed Not Available [facility] 10/11/2023 10:21:53 COVID-19, mRNA, LNP-S, PF, 100 mcg/0.5mL dose or 50 mcg/0.25mL dose 1 completed Not Available [facility] 10/11/2023 10:21:53 COVID-19, mRNA, LNP-S, PF, 100 mcg/0.5mL dose or 50 mcg/0.25mL dose 2 completed Not Available [facility] 10/11/2023 10:21:53 Influenza, split virus, quadrivalent, preservative 8 completed Not Available [facility] 10/11/2023 10:21:53 influenza nasal, unspecified formulation 2 completed Not Available [facility] 10/11/2023 10:21:54 influenza, unspecified formulation 4 completed Willard Thapa, DO [address] [place], [address], [facility] 07/07/2025 15:27:29 Pneumococcal Conjugate, unspecified formulation 2 completed Willard Dahl Carlos EduardoDO darryl [address] [place], [address], [facility] 07/07/2025 15:28:35 Influenza, split virus, quadrivalent, preservative 9 completed Not Available [facility] 10/11/2023 10:21:53 COVID-19, mRNA, LNP-S, PF, 100 mcg/0.5mL dose or 50 mcg/0.25mL dose 1 completed Not Available [facility] 10/11/2023 10:21:53 COVID-19, mRNA, LNP-S, PF, 100 mcg/0.5mL dose or 50 mcg/0.25mL dose 1 completed Not Available [facility] 10/11/2023 10:21:53 Past Encounters Encounter ID Performer Location Encounter Start Date Encounter Closed Date Diagnosis/Indication Diagnosis SNOMED-CT Code Diagnosis ICD10 Code Diagnosis IMO Codes Diagnosis Note [id number] Willard Thapa [facility] [address] [facility], [place] [address] 08/21/2018 10:15:28 08/21/2018 12:13:18 Adult health examination 574554342 Z00.00 Active or passive immunization 135421297 Z23 [id number] Willard Thapa [facility] [address] [facility], [place] [address] 03/19/2019 10:58:13 03/19/2019 12:06:18 Gastroesophageal reflux disease 749465093 K21.9 well controlled Allergic rhinitis 914101 04 J30.9 well controlled Eczema 21277345 L30.9 has cream rarely needs Acute urin leah tract infection 807610575 N39.0 [id number] January MAXIMUS Vallejo [facility] [address] [facility],[place] [address] 10/23/2019 10:47:48 10/23/2019 11:44:47 Allergic rhinitis 30835328 J30.9 well controlled Gastroesop hageal reflux disease 608518873 K21.9 well controlled Conjunctiv itis of bilateral eyes caused by bacteria 9597277795 9131609 H10.9 Acute righ t otitis media 049265197 H66.91 TAKE A PROBIOTIC [id number] MAXIMUS Siddiqi [facility] [address] [facility], [place] [address] 10/30/2019 10:39:18 10/30/2019 12:05:44 Allergic rhinitis 56559678 J30.9 well controlled Gastroesop hageal reflux disease 315313420 K21.9 well controlled Conjunctiv itis of bilateral eyes caused by bacteria 8211722364 7976675 H10.9 resume using gentamycin complete 10-14 day course Acute righ t otitis media 161751495 H66.91 TAKE A PROBIOTIC Candidiasis of vagina 72 252437 B37.3 [id number] [facility] [address] [facility],[place] [address] 11/11/2019 09:04:15 11/11/2019 10:09:01 Acute right otitis media 294478044 H66.91 failed amox x 3 days, augmentin x 7 days, mini will try levaquin 500 mg x 10 days. may stop abx after 7 days if sx fully resolved aware of side effect risks with levaquin recommend ibuprofen as needed for the ear pain as well aware she should take probiotics will send treatment for yeast infection aware that this could be viral in which case antibiotic s would be ineffectiv e would like to see ENT at [facility] in [place] if levaquin fails, will send referral in case that does happen Candidiasis of vagina 72 501032 B37.3 [id number] Willard Thapa [facility] [address] [facility], [place] [address] 02/04/2020 11:04:46 02/04/2020 14:14:40 Acute low back pain 643066385 M54.5 Microscopic hematuria 19 1799807 R31.21 [id number] Willard Thapa [facility] [address] [facility], [place] [address] 06/10/2020 13:54:25 06/10/2020 15:07:55 Adult health examination 406075698 Z00.01 Active or passive immunization 753630939 Z23 Hepatitis C screening 41 9387047 Z11.59 Osteopenia 230668771 M85 .80 Gastroesop hageal reflux disease 472662488 K21.9 Benign par oxysmal positional vertigo 271743100 H81.13 Osteoarthr itis of knee 354102863 M17.9 [id number] Willard Thapa [facility] [address] [facility] [address] [employer], [place] [address] 01/20/2021 09:51:25 01/20/2021 10:43:51 Gastroesophageal reflux disease 893783022 K21.9 stable as long as she is taking omeprazole Osteoarthr itis of knee 503289557 M17.9 offered pt to see specialist and she will let us know Psoriasis 6997956 L40.9 doing well and no issues uses james inj if recurs Osteoporosis 44328722 M8 1.0 will cont her on the fosamax for total of one year [id number] Willard Thapa [facility] [address] [facility],[place] [address] 07/26/2021 10:39:01 07/26/2021 12:31:45 Osteoarthritis of knee 362061252 M17.9 offered pt to see specialist and she will let us know Edema of l ower extremity 194357068 R60.0 we will make sure she does not have any clot present and cont to elevate legshe has no sob or cp remains very active Osteoporosis 56227293 M8 1.0 will stop the fosamax due to diarrhea we will have her get bmd [id number] Willard Thapa [facility] [address] [facility] [address] [employer],[place] [address] 11/24/2021 10:59:19 11/24/2021 15:16:50 Lipoma of hip 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.23 will fu with US of hip for soft tissue mass which has increased in side Osteoarthritis of hip 23 4376108 M16.11 will fu with XR eval of her right hip Essential hypertension 21261641 I10 BP is fine todayconti nue on the amlodipine [id number] Willard Thapa DO [facility] [address] [facility],[place] [address] 12/17/2021 13:40:47 12/20/2021 11:34:47 Gastroesophageal reflux disease 370772615 K21.9 stable as long as she is taking omeprazole Blood pres sure above reference range 50470767 R03.0 she is on amlodipine 5mg daily that was prior to surgery we should increase to 10mg Pain of ri ght hip joint 7569012290 92730 M25.551 [id number] Willard Thapa [facility] [address] [facility],[place] [address] 04/12/2022 08:33:32 04/12/2022 15:45:03 Lumbago with sciatica 863409200 M54.41 we will cont the PT but feel she may need an MRI of spinenote if she flexes her head she has pain and numbness emerge in her foot and toes on right Pain of ri ght hip joint 1716677139 23540 M25.551 she will need to get ct scan of hip first and then determine if MRI warranted for back [id number] Willard Thapa DO [facility] Internal Medicine [address] [facility],[place] [address] 06/07/2022 10:56:22 06/07/2022 11:36:11 Active or passive immunization [id number] Z23 Patient advised due for Tdap, Pneumo and shingles. Also this years flu shot Adult heal th examination [id number] Z00.01 Depression screening 171 517325 Z13.31 negative PHQ2 Advance care planning 71 1361826 Z71.89 Health care Proxy given today advised to bring back Degenerati on of lumbar intervertebral disc 93278293 M51.36 [id number] Willard Thapa [facility] Internal Medicine [address] [facility], [place] [address] 07/06/2022 14:51:10 07/06/2022 16:37:47 Displacement of lumbar intervertebral disc without myelopathy 33959366 M51.26 will set up with Dr. Rudolph for a second opinion and surgical consult [id number] Willard Thapa [facility] [address] [place] [address] 05/03/2023 14:35:31 05/03/2023 15:24:31 Degeneration of lumbar intervertebral disc 32903365 M51.36 currently stable Gastroesop hageal reflux disease 817903407 K21.9 stable as long as she is taking omeprazole Osteoporosis 68084147 M8 1.0 will stop the fosamax due to diarrhea we will have her get bmd Edema of l ower extremity 717052295 R60.0 we will make sure she does not have any clot present and cont to elevate legshe has no sob or cp remains very active Onychomyco sis of toenails 323454618 B35.1 discussed Tinea pedis 4563707 B35. 3 will treat [id number] [facility] [address] [facility],[place] [address] 07/05/2023 13:50:02 07/05/2023 14:19:46 Edema of lower extremity 899833190 R60.0 we will make sure she does not have any clot present and cont to elevate legshe has no sob or cp remains very active Gastroesop hageal reflux disease 976992201 K21.9 stable as long as she is taking omeprazole Osteoporosis 81680109 M8 1.0 will stop the fosamax due to diarrhea we will have her get bmd Erythromelalgia 85532025 I73.81 she will try asa daily 81mg Lumbago with sciatica 20 6400631 M54.41 we will cont the PT but feel she may need an MRI of spinenote if she flexes her head she has pain and numbness emerge in her foot and toes on right [id number] Willard Thapa [facility] [address] [place] [address] 07/26/2023 13:34:41 07/26/2023 15:18:53 Abscess of groin 38481722 L02.214 will set up with STATcont abxworried about it affecting hip replacemen t [id number] Willard Thapa [facility] Internal Medicine [address] [facility],[place] [address] 03/05/2024 10:45:15 03/05/2024 11:56:36 Active or passive immunization [id number] Z23 Patient advised due for Tdap, Pneumo and shingles. Also this years flu shot Adult heal th examination 355575237 Z00.01 doing well arthritis is still a prob noted her right thumb as dislocated Depression screening 171 773167 Z13.31 negative PHQ2 [id number] Willard Thapa [facility] Internal Medicine [address] [facility],[place] [address] 04/14/2025 08:48:02 04/14/2025 09:35:33 Lumbago with sciatica 285782485 M54.40 we will cont the PT but feel she may need an MRI of spinenote if she flexes her head she has pain and numbness emerge in her foot and toes on right Osteoarthr osis of the carpometacarpal joint of the thumb 04492689 M18.9 Depression screening 171 608601 Z13.31 negative PHQ2 Acute righ t otitis media 115959260 H66.91 [id number] [id number] Willard Thapa [facility] Internal Medicine [address] [facility],[place] [address] 06/02/2025 13:40:04 06/02/2025 16:02:41 Foreign body in right ear 9090534301 8341232 T16.1XXA 9677186 Tinnitus of right ear 48 63899715 108 H93.11 [id number] [id number] Willard Thapa [facility] Internal Medicine [address] [facility],[place] [address] 06/24/2025 09:47:38 06/24/2025 12:57:32 Pre-surgery evaluation 456539118 Z01.818 Per the 2017 ACC cardiac risk stratifica tion this patient is cleared for the proposed cataract procedure and is a low risk . Patient understand s to take her usual medication s on the day of her procedure . Depression screening 171 Z13.31 negative PHQ2 [id number] Willard BruceJono Tammy [facility] Internal Medicine [address] [facility],[place] [address] 07/07/2025 14:38:44 07/07/2025 15:58:58 Screening for cardiovascular system disease 484436764 Z13.6 Screening for malignant neoplasm of colon 482335418 Z12.11 Screening for osteoporosis 766456086 Z13.820 Screening mammography 24 609763 Z12.31 done february 17 Depression screening 171 563160 Z13.31 negative PHQ2 Preventive procedure 169 634798 Z00.00 44454129 doing well arthritis is still a prob noted her right thumb as dislocated [id number] Willard Dahl Tammy [facility] Internal Medicine [address] [facility],[place] [address] 07/09/2025 08:50:19 07/09/2025 13:35:14 Impacted cerumen in right ear 9720738404 182102 H61.21 850344 TM looks infectred we will need to treat as above ear irrgatedn treat for otitis as tm is red bulging Health Concerns Section Related Observation LastModified by Organization Detai ls LastModified Time None Recorded Concern Status LastModified by Organization Details LastModified Time None Recorded Advance Directives Directive None Recorded Payers Insurance Date Sequence Insurance Name Policy Number Policy Michael Covered Member ID Michael Member ID Guarantor Name 07/09/2025 2 [place] [id number] Tara Arel [id number] Tara Cueto Areoli 06/21/2025 1 [place] [employer] SERVICES Tara Cueto Arel [id number] Tara Cueto Areoli Notes Date Note Type Note Provider Name a nd Address Organization Details Recorded Time 5 text/html Annual WellnessReported by PatientSocial/Behavio ral HistoryFor diet and nutrition, patient reportshealthy diet. For fracture risk, patient reportsno history of fractures,no recent explained fracture,no sudden unexplained fractures, andno previous musculoskeletal injuries. For physical activity, patient reportsexercises on a regular basis,recent increase in physical activity, andgood physical condition. For additional lifestyle factors, patient reportsno tobacco use,no alcohol intake, andstopped drinking alcohol.Mental Status:For depression risk, patient reportsnever feels sad, empty, or tearful,no loss of interest in activities,no significant changes in weight,no sleep disturbances or insomnia,no agitation,no loss of energy,no feelings of worthlessness or guilt,no thoughts of suicide,no history of depression, andno history of mood disorders.Functional AbilityFor hearing, patient reportsno loss of hearing. For vision, patient reportsno vision problems. Musculoskeletal PainReported by PatientHPIFor location, patient reportspain is not radiating. For severity, patient reportsimproving. For associated symptoms, patient reportsno fever,no weak limbs,no tingling,no numbness of the legs/feet, andno incontinence. For adl (activities of daily living), patient reportsimprove with medication.ROS as noted in the HPI here for rechk and relates that an insect went into her right earhas an irritation feeling since then was removed at given ear dropsand has had worsening sound and discomfort sine then occured last week has sound sensitivity and now pain in her right ear note her back is now feeling good and she took pred taper and doing ok overall overall she is doing pretty goodsleeping okno cp no sobappetite goodbowels goodbladder nura Thapa, [address] [facility], [place], [address], [facility] Internal Medicine 04/14/2025 09:18:00 5 text/html ROS as noted in the HPI c/o ear pain (R) the patient reports she is doing fineshe developed acute onset ear pain R ear, which is the one she had the live moth inlooks likes some residual scar tissue and the ear drum is retracted and having tinnitus patient has BP issues recommended medrol insteadand tramadol for the discomfort she's on aspirin and has cardiac hx (plus use of medrol) pt has fu in Jun for preopencouraged to call sooner is she has cont symptoms RAFA BOATENG [address] [place], [address], [facility] Internal Medicine 06/02/2025 14:25:56 5 text/html Pre-OpReported by PatientHPIFor risk factors, patient reportsno cognitive impairment,no functional impairment,no malnutrition,no frailty,able to climb a flight of stairs (exercise capacity>4 mets),no obstructive sleep apnea,non-smoker,no alcohol misuse,no illicit drug use,no chronic cardiopulmonary condition, andnot obese. For anesthesia hx, patient reportsno hx of anesthesia complications,no allergy to anesthetic agents, andno family history of anesthesia complications. For functional ability, patient reportsable to walk up stairs,able to perform heavy work around the house,no difficulty walking up hills, andable to walk 4 mph.ROS as noted in the HPI here for her pre op eval for cataractsdoing well overallno cp no soblooking forward to seeing better Willard Thapa, DO [address] [place], [address], [facility] 06/24/2025 11:07:24 5 text/html Medicare Annual Wellness VisitReported by PatientSocial/Behavio ral HistoryFor diet and nutrition, patient reportshealthy diet. For fracture risk, patient reportsno history of fractures,no recent explained fracture,no sudden unexplained fractures, andno previous musculoskeletal injuries. For physical activity, patient reportsexercises on a regular basis,recent increase in physical activity, andgood physical condition.Mental Status:For depression risk, patient reportsnever feels sad, empty, or tearful,no loss of interest in activities,no significant changes in weight,no sleep disturbances or insomnia,no agitation,no loss of energy,no feelings of worthlessness or guilt,no thoughts of suicide,no history of depression, andno history of mood disorders. For orientation, patient reportsno disorientation to time,no disorientation to date, andno disorientation to place. For concentration and memory, patient reportsno decreased concentrating ability,no memory lapses or loss, anddoes not forget words. For speech/motor difficulties, patient reportsno speech difficulties,no difficulty expressing formulated concepts,no difficulty with fine manipulative tasks,no difficulty writing/copying,no slowed reaction time, anddoes not knock things over when trying to pick them up.Functional AbilityFor hearing, patient reportsno loss of hearing. For vision, patient reportsno vision problems. For activities of daily living, patient reportsable to bathe with limited or no assistance,able to contol urination and bowels,able to dress with limited or no assistance,able to feed self with limited or no assistance,able to get out of chair or bed with limited or no assistance,able to groom with limited or no assistance, andable to toilet with limited or no assistance. For instrumental activities of daily living, patient reportsable to do house work with limited or no assistance,able to grocery shop with limited or no assistance,able to manage medications with limited or no assistance,able to manage money with limited or no assistance,able to prepare meals with limited or no assistance, andable to use the phone with limited or no assistance. For falls risk assessment, patient reportsno frequent falls while walking,no fall in the past year,no fall since last visit, andno dizziness/vertigo. For home safety, patient reportsno unsafe renato hazzards,no unsafe stairs,no unsafe gas appliances,working smoke/co detectors,wears protective head gear for biking/high velocity,use of seatbelts,practicing 'safer sex',no vision or hearing loss while driving,no fire arms,has hand bars in the bathroom/shower, andgood lighting in the home.ROS as noted in the HPI Willard Thapa DO [address] [place] [address], [id number], [facility] Internal Medicine 07/07/2025 15:34:18 5 text/html ROS as noted in the HPI here for ear irrigation since she is havibng ongoing discomfort tyo her right ear againstill sore there had been debris in eac Willard Thapa DO [address] [place] [address], [phone], [facility] Internal Medicine 07/09/2025 13:33:20 OBGyn Episode No OBEpisode recorded.
--- OUTSIDE RECORDS SUMMARY | 2025-07-09 18:18 | XMS_ITS | Encounter Summary ---
Author Organization [facility] Address [address] [facility] [place] [address] Phone Care Team Providers Care Shove Up Name Role Phone Bigda, Willard A DO Unavailable Bigda, Willard A DO Unavailable Bigda, Willard A DO Primary Care Provider [phone] Bigda, Willard A DO Primary Care Provider [phone] Encounter Details Date Type Department Care Team (Latest Contact Info) Description 11/24/2021 Transcribe Orders Virtual Department [address] [place] [address] Maggie Obrien PA [address] [place] [address] [place] [address] Primary osteoarthritis of right hip (Primary Dx) Social History Tobacco Use Types [...] as of this encounter Results * XR HIPS 2+ VW EA BILAT PLUS PELVIS (12/01/2021 8:39 AM EST) Anatomical Region Laterality Modality Hip, Pelvis Computed Radiogr aphy 12/01/2021 10:2 1 AM EST Impressions 12/01/2021 10:25 AM EST 1. Mild-moderate degenerative changes at the right hip. 2. Mild degenerative changes at the left hip. Narrative 12/01/2021 10:25 AM EST HISTORY: Hip pain, greater on right than left. COMPARISON: None. VIEWS: AP view the pelvis and AP and lateral views of each hip. FINDINGS: Right hip: Mild-moderate joint space narrowing. Very mild spurring. No evidence of flattening of the femoral head. No definite signs of AVN. Left hip: Mild joint space narrowing. Minimal spurring. No evidence of flattening of the femoral head. No definite signs of AVN. Other: No evidence of fractures, subluxations or dislocations. No suspicious lytic or blastic lesions within the bones. Evidence of degenerative changes in the lower lumbar spine and at the lumbosacral junction. Procedure Note Joshua Blanton MD - 12/01/2021 HISTORY: Hip pain, greater on right than left. COMPARISON: None. VIEWS: AP view the pelvis and AP and lateral views of each hip. FINDINGS: Right hip: Mild-moderate joint space narrowing. Very mild spurring. Noevidence of flattening of the femoral head. No definite signs of AVN. Left hip: Mild joint space narrowing. Minimal spurring. No evidence offlattening of the femoral head. No definite signs of AVN. Other: No evidence of fractures, subluxations or dislocations. Nosuspicious lytic or blastic lesions within the bones. Evidence ofdegenerative changes in the lower lumbar spine and at the lumbosacraljunction. IMPRESSION: 1. Mild-moderate degenerative changes at the right hip. 2. Mild degenerative changes at the left hip. Maggie CRAIG IMG XR PELVIS Final Resul t documented in this encounter Visit Diagnoses Diagnosis Primary osteoarthritis of right hip- Primary Primary osteoarthritis of right hip documented in this encounter Care Teams Shove Up Relationship Specialty Start Date End Date Willard Munoz DO PCP - General Internal Medicine 08/02/17 02/28/25 Willard Munoz DO [address] [place] [address] PCP - General Internal Medicine 03/01/25 Willard Munoz DO Historical LMR Provider 07/24/17 Willard Munoz DO Internal Medicine 08/02/17 documented as of this encounter Additional Source Comments The information contained in this document represents components of the legal health record. It is not the complete legal health record.[facility]
--- OUTSIDE RECORDS SUMMARY | 2025-07-09 18:18 | XMS_ITS | Encounter Summary ---
Author Organization [facility] Address [address] [place] [address] Drive [address] [place] [address] Phone Care Team Providers Care Electric Car Operator Name Role Phone Bigdarryl, Willard A DO Unavailable Bigda, Willard A DO Unavailable Bigda, Willard A DO Primary Care Provider [phone] Bigda, Willard A DO Primary Care Provider [phone] Encounter Details Date Type Department Care Team (Late st Contact Info) Description 02/03/2025 Procedure Pass [address] [address] Social History Tobacco Use Types Packs/Day Years Used Date Smoking Tobacco: Never Alcohol Use Standard Drinks/Week Comments Not Currently 0 (1 standard drink = 0.6 oz pur e alcohol) recovering from knee surgery Education Answer Date Recorded Are you interested in more education? Not on agnes e 02/03/2023 Are you concerned about learning? Not on file 02/03/2023 No 02/03/2023 No 02/03/2023 Digital Access Answer Date Recorded No 03/04/2023 No 03/04/2023 Reliable internet access at home? Not on file 03/04/2023 Device with a working camera? Not on file Comments No Sex and Gender Information Value Date Recorded Sex Assigned at Not on file Legal Sex Female 10:06 PM EDT Gender Identity Not on file Sexual Orientation Straight 11/17/2021 10 :25 AM EST documented as of this encounter Plan of Treatment Not on file documented as of this encounter Visit Diagnoses Not on filedocumented in this encounter Care Teams Electric Car Operator Relationship Specialty Start Date End Date Willard Munoz DO PCP - General Internal Medicine 08/02/17 02/28/25 Willard Munoz DO [address] [place] [address] PCP - General Internal Medicine 03/01/25 Willard Munoz DO Historical LMR Provider 07/24/17 Willard Munoz DO [email or web address] Internal Medicine 08/02/17 documented as of this encounter Additional Source Comments The information contained in this document represents components of the legal health record. It is not the complete legal health record.[facility]
--- OUTSIDE RECORDS SUMMARY | 2025-07-09 18:18 | XMS_ITS | Encounter Summary ---
Author Organization [facility] Address [address] [place] [address] Drive [address] [place] [address] Phone Care Team Providers Care Cardboard Inserter Name Role Phone Willard Munoz DO Unavailable Deb Aguilera PLASTERER HELPER Unavailable [phone] Vanessa Oviedo MD Unavailable Amairani Jaimes RDCS Unavailable [email or web address] Willard Munoz DO Unavailable Willard Munoz DO Primary Care Provider [phone] Willard Munoz DO Primary Care Provider [phone] Encounter Details Date Type Department Care Team (Late st Contact Info) Description 07/26/[address] Procedure [address] [facility], [address] [address] Social History Tobacco Use Types Packs/Day Years [...] on filedocumented in this encounter Care Teams Cardboard Inserter Relationship Specialty Start Date End Date Willard Munoz DO PCP - General Internal Medicine 08/02/17 02/28/25 Willard Munoz DO [address] [facility] [place] [address] PCP - General Internal Medicine 03/01/25 Willard Munoz DO Historical LMR Provider 07/24/17 Deb Aguilera NP [address] [place] [address] [email or web address] Historical LMR Provider 07/24/17 2 Vanessa Oviedo MD [address] [address] Historical LMR Provider 07/24/17 10/16/21 Amairani Jaimes RDCS Historical LMR Provider 07/24/17 10/16/21 Willard Munoz DO Internal Medicine 08/02/17 documented as of this encounter Additional Source Comments The information contained in this document represents components of the legal health record. It is not the complete legal health record.[facility]
--- OUTSIDE RECORDS SUMMARY | 2025-07-09 18:18 | XMS_ITS | Clinical Summary ---
Author Organization [facility] Address [address] [place] [address] Phone Care Team Providers Care Predator Control Trapper Name Role Phone Tammy, Iwllard A DO Unavailable Bigda, Willard A DO Unavailable Bigda, Willard A DO Primary Care Provider [phone] Allergies Active Allergy Reactions Criticality Noted Date Comments Sulfa (Sulfonamide Antibiotics) 11/10 Medications fluticasone furoate (VERAMYST) 27.5 mcg/actuation nasal spray 1 puff in each nostril Nasally Once a day Active omeprazole (PRILOSEC) 10 MG capsule Take 2 capsules by mouth daily. Active ciclopirox (CICLODAN) 0.77 % cream 1 application to affected area Externally Twice a day prn 1 Active clotrimazole-be tamethasone (LOTRISONE) cream 1 application to affected area Externally Twice a day prn Active Medication-Free Text Osteo Bi-Flex Adv Double St Tablet, Sig: Orally Active Ca cit-D3-mag#11-z [id number]-emi r (CALTRATE 600+D) 600 mg calcium- 800 unit-50 mg Tab Take 1 tablet by mouth daily. Active pantoprazole (PROTONIX) 40 MG tablet Take 40 mg by mouth. 3 Active meloxicam (MOBIC) 15 MG tablet meloxicam 15 mg tablet TAKE 1 TABLET BY MOUTH EVERY DAY FOR 30 DAYS Active naproxen (NAPROSYN) 500 MG tablet naproxen 500 mg tablet TAKE 1 TABLET BY MOUTH TWICE A DAY FOR 10 DAYS Active baclofen (LIORESAL) 10 MG tablet Active gabapentin (NEURONTIN) 300 MG capsule gabapentin 300 mg capsule TAKE 1 CAPSULE BY MOUTH EVERY DAY Active spironolactone (ALDACTONE) 25 MG tablet Take 1 tablet by mouth every morning. 3 Active meclizine (ANTIVERT) 25 mg tablet Take 25 mg by mouth 3 (three) times a day as needed (vertigo). Active amoxicillin (AMOXIL) 500 MG capsule TAKE 4 CAPSULES BY MOUTH 1 HOUR PRIOR TO DENTAL WORK DIRECTED 4 Active methylPREDNISol one (MEDROL DOSEPACK) 4 mg tablet follow package directions 21 tablet 5 Active Additional Information Patient not taking.Reported on 03/18/2025 calcium carbonate-vitam in D3 (CALCIUM 600 + D,3,) 1500 mg (600 mg elemental)-400 units per tablet Take by mouth daily. Active amLODIPine (NORVASC) 10 MG tablet Take 10 mg by mouth daily. Active amLODIPine (NORVASC) 5 MG tablet Take 5 mg by mouth daily. Active aspirin 81 MG EC tablet Take 81 mg by mouth daily. Active multivitamin-mi nerals-lutein (MULTIVITAMIN 50 PLUS) Tab Take by mouth daily. Active omeprazole (PRILOSEC) 20 MG capsule TAKE 1 CAPSULE BY MOUTH EVERY DAY needs appt for further refills. call office 4 Active Active Problems No known active problems Encounters Date Type Department Care Team Description 07/08/2025 Transcribe Orders [facility] Department [address] [place] [id number] Willard Munoz DO Encounter for screening for osteoporosis (Primary Dx) from Last 3 Months Immunizations Immunization Administration Dates Next Due COVID-19 (Pre-07/31) Moderna Vaccine, mRNA, PF 02/01/2021 INFLUENZA, SPLIT VIRUS, TRIV ALENT W/ PRESERVATIVE IM 06/18/2013,07/13/2012 Influenza High-Dose Quadriva lent Preservative Free IM 05/24/2023 Influenza High-Dose Trivalen t Preservative Free IM 07/30/2018,07/27/2017,07/02/2016 Influenza Quadrivalent Adjuv anted Preservative Free IM 06/29/2021,06/18/2020 Influenza Quadrivalent MDCK Preservative Free IM 09/20/2022 Influenza Quadrivalent w/ Preservative IM 2018 Pneumococcal conjugate PCV13 09/26/2015 Social History Tobacco Use Types Packs/Day Years Used Date Smoking Tobacco: Never Tobacco Cessation:Counseling Given: Not Answered Alcohol Use Standard Drinks/Week Comments Not Currently 0 (1 standard drink = 0.6 oz pur e alcohol) recovering from knee surgery Education Answer Date Recorded Are you interested in more education? Not on agnes e 02/03/2023 Are you concerned about learning? Not on file 02/03/2023 No 02/03/2023 No 02/03/2023 Food Answer Date Recorded Within the past 6 months we worried whether our food would run out before we got money to buy more. Never True 03/01/2025 Within the past 6 months the food we bought just didn't last and we didn't have enough money to get more. Never True Residential Stability Answer Date Recor ded What is your housing situation today? I have diana sing 03/01/2025 How many times have you move d in the past 12 months? Zero (I did not move) 03/01/2025 Paying for Meds Answer Date Recorded Do you have trouble paying for medicines? No 03/01/2025 Paying Utility Bills Answer Date Record ed Do you have trouble paying your heating or elect ricity bill? No 03/01/2025 Transportation Answer Date Recorded Has the lack of transportati on kept you from medical appointments or from getting medications? No 03/01/2025 Digital Access Answer Date Recorded No 03/01/2025 Yes 03/01/2025 Do you have reliable internet access at home? Ye s 03/01/2025 Do you have a device (e.g., phone, tablet, computer) with a working camera? Yes 03/01/2025 Intimate Partner Violence Answer Date R ecorded Are you denied basic needs s uch as food, clothing, or medical care? No 03/01/2025 In the past 12 months have y ou been in a relationship with a person who hurts, threatens, or tries to control you? No 03/01/2025 Are you denied basic needs s uch as food, clothing, or medical care? No 03/01/2025 In the past 12 months have y ou been in a relationship with a person who hurts, threatens, or tries to control you? No 03/01/2025 Comments No Sex and Gender Information Value Date Recorded Sex Assigned at Not on file Legal Sex Female 10:06 PM EDT Gender Identity Not on file Sexual Orientation Straight 11/17/2021 10 :25 AM EST Last Filed Vital Signs Vital Sign Reading Time Taken Comments Blood Pressure 133/86 03/18/2025 12:38 PM EDT Pulse 97 03/18/2025 12:38 PM EDT Temperature 36.8 C (98.2 F) 03/18/2025 12:38 PM EDT Respiratory Rate 17 03/18/2025 12:38 PM EDT Oxygen Saturation 97% 03/18/2025 12:38 PM EDT Inhaled Oxygen Concentration - - Weight 101.6 kg (224 lb) 03/01/2025 12:17 PM EDT Height 154.9 cm (5' 1 ) 03/01/2025 12:17 PM EDT Body Mass Index 42.32 03/01/2025 12:17 PM EDT Plan of Treatment Health Maintenance Due Date Last Done Comments Adult Td,Tdap Booster 1945 LIPID PANEL 1947 POTASSIUM LEVEL 1947 DEPRESSION SCREENING 1959 HEPATITIS C SCREENING 1965 ZOSTER VACCINES (1 of 2) 1997 PNEUMOCOCCAL VACCINES (50+ years) (2 of 2 - PPSV23) 09/26/2016 09/26/2015 RSV VACCINE (1 - 1-dose 75+ series) 2022 INFLUENZA VACCINE (#1) 2025 , 05/24/2023, 09/20/2022, Additional history exists COVID-19 VACCINE ( season) 2025 09/10/2024, 09/16/2022, 01/21/2022, Additional history exists OSTEOPOROSIS SCREENING INITIAL (ONE-TIME) Completed 11/25/2022, 06/25/2020 SMOKING STATUS SCREENING (Once After 26 Yrs) Completed 03/18/2025 HEPATITIS A VACCINES Aged Out No long er eligible based on patient's age to complete this topic HIB VACCINES Aged Out No longer eligi ble based on patient's age to complete this topic MENINGOCOCCAL VACCINES (ACWY) Aged Out No longer eligible based on patient's age to complete this topic MENINGOCOCCAL VACCINES (B) Aged Out N o longer eligible based on patient's age to complete this topic Medical Devices Not on file Procedures Procedure Name Priority Date/Time Associated Diagnosis Comments BD DXA AXIAL (SPINE) WITH HIP Routine 11/25/2022 9:40 AM EST Age-related osteoporosis without current pathological fracture from Last 3 Months or Most Recently Relevant to Health Maintenance Results * BD DXA AXIAL (SPINE) WITH HIP (11/25/2022 9:40 AM EST) Anatomical Region Laterality Modality Bone Density Bone Density 11/25/2022 3:02 PM EST Impressions 11/25/2022 3:10 PM EST Osteopenia based on the left femoral neck density. (This is a similar result to the study on 06/25/2020 but at that time the overall WHO classification was based on the total hip density). POS -[id number] Narrative 11/25/2022 3:10 PM EST This is [...] based on the total hip density). POS -[id number] us Willard A Bigda DO IMG BD BONE DENSITY DEXA Final R esult from Last 3 Months or Most Recently Relevant to Health Maintenance Insurance MEDICARE PART A & B [employer] MEDEX SUPPLEMENT MEDICARE PART A & B [employer] MEDEX SUPPLEMENT MEDICARE PART A & B [employer]EX SUPPLEMENT MEDICARE PART A & B [employer]EX SUPPLEMENT MEDICARE PART A & B [employer]EX SUPPLEMENT MEDICARE PART A & B [employer]EX SUPPLEMENT MEDICARE PART A & B [employer] MEDEX SUPPLEMENT MEDICARE PART A & B [employer] SUPPLEMENT MEDICARE PART A & B [facility] MEDEX SUPPLEMENT Care Teams Predator Control Trapper Relationship Specialty Start Date End Date Willard Munoz DO [address] [place] [id number] PCP - General Internal Medicine 03/01/25 Willard Munoz DO Historical LMR Provider 07/24/17 Willard Munoz DO [email or web address] Internal Medicine 08/02/17 Additional Source Comments The information contained in this document represents components of the legal health record. It is not the complete legal health record.[facility]
--- OUTSIDE RECORDS SUMMARY | 2025-07-09 18:18 | XMS_ITS | Encounter Summary ---
Author Organization [facility] Address [address] [place] [address] [place] [phone] Phone Care Team Providers Care Carbon Sequestration Plant Operator Name Role Phone Carlos Eduardodarryl Willard Bruce DO Unavailable Deb Aguilera EMERGENCY MANAGEMENT COORDINATOR Unavailable [phone] Vanessa Oviedo MD Unavailable Amairani Jaimes RDCS Unavailable [email or web address] Tammy Willard Teo DO Unavailable Willard Munoz DO Primary Care Provider [phone] Willard Munoz DO Primary Care Provider Encounter Details Date Type Department Care Team (Late st Contact Info) Description 02/09/2021 Ancillary Orders Virtual Department [address] [place] [address] Willard Munoz DO [address] [facility] [address] [place] [address] [email or web address] Breast screening Social History Tobacco Use Types [...] MAMMOGRAM SCREENING WITH TOMOSYNTHESIS WITH CAD (BILATERAL) (02/15/2021 2:15 PM EDT) Anatomical Region Laterality Modality Breast Left, Breast Right, Breast Bilateral Bila teral Mammography 02/15/2021 3:25 PM EDT Impressions 02/15/2021 3:28 PM EDT No mammographic change indicative of malignancy. Annual screening is recommended. BI-RADS CATEGORY: 2 - Benign finding. DENSITY: There are scattered fibroglandular densities. Narrative 02/15/2021 3:28 PM EDT Bilateral full-field digital screening mammography is obtained and read in conjunction with computer-aided detection. Tomosynthesis as well as 2-D C view imaging of both breasts in two planes also obtained. Comparison made to multiple prior, most recent September 17, 2018, and most remote September 04, 2013. No dominant mass, architectural distortion, worrisome asymmetry, or suspicious calcification is identified. No skin or nipple finding of concern is appreciated. Faint waxing and waning nodules bilaterally again noted without dominant lesion or any area being more suspicious than another. Vascular and scattered calcification is again noted. Procedure Note Ramana Mathias MD - 02/15/2021 Bilateral full-field digital screening mammography is obtained and read inconjunction with computer-aided detection. Tomosynthesis as well as 2-D Cview imaging of both breasts in two planes also obtained. Comparison madeto multiple prior, most recent September 17, 2018, and most remote 2012. No dominant mass, architectural distortion, worrisome asymmetry, orsuspicious calcification is identified. No skin or nipple finding ofconcern is appreciated. Faint waxing and waning nodules bilaterally againnoted without dominant lesion or any area being more suspicious thananother. Vascular and scattered calcification is again noted. IMPRESSION: No mammographic change indicative of malignancy. Annual screening isrecommended. BI-RADS CATEGORY: 2 - Benign finding. DENSITY: There are scattered fibroglandular densities. us Willard A Bigda DO IMG MG EXAMS Final Result documented in this encounter Visit Diagnoses Diagnosis Breast screening Breast screening, unspecified Breast screening Breast screening, unspecified documented in this encounter Care Teams Carbon Sequestration Plant Operator Relationship Specialty Start Date End Date Willard Munoz DO PCP - General Internal Medicine 08/02/17 02/28/25 Willard Munoz DO [address] [place] [id number] PCP - General Internal Medicine 03/01/25 Willard Munoz DO Historical LMR Provider 07/24/17 Deb Aguilera NP [address] [place] [address] [email or web address] Historical LMR Provider 07/24/17 2 Vanessa Oviedo MD [address] [address] Historical LMR Provider 07/24/17 10/16/21 Amairani Jaimes RDCS Historical LMR Provider 07/24/17 10/16/21 Willard Munoz DO Internal Medicine 08/02/17 documented as of this encounter Additional Source Comments The information contained in this document represents components of the legal health record. It is not the complete legal health record.[facility]
--- OUTSIDE RECORDS SUMMARY | 2025-07-09 18:18 | XMS_ITS | Continuity of Care Document ---
Author Organization [facility] Address [address] [facility] [address] [place] [address] Assessment Encounter Date Assessment Date Assessment LastModified [...] promote healthy living. Not available 06/18/2025 15:18:07 Plan of Treatment Reminders Order Date Submit Date Provider Last Modified By Organization Details Last Modified Time Details Appointments PROCEDURE 15 2024 09:00A M DR THAPA Not available Not available Not available FOLLOW UP 15 [address] THAPA Not available Not available Not available MEDICARE ANNUAL WELLNESS 2025 10:30A M DR THAPA Not available Not available Not available Lab lipid panel, blood 2024 025 [facility], [address] [place] [address], [place], [address], 07/07/2025 15:33:00 vitamin B12 + folate, serum or blood 2024 025 [facility], [address] [place] [address], [place], [address], 07/07/2025 15:33:00 hemoglobi n, gastroint estinal, stool 2024 025 [facility], [address] [facility], [place], [address], 07/07/2025 15:33:00 CBC w/ auto diff 2024 025 [facility], [address] [facility], [place], [address], 07/07/2025 15:33:00 CMP, serum or plasma 2024 025 [facility], [address] [facility], [place], [address], 07/07/2025 15:33:00 Referral None recorded. Procedures None recorded. Surgeries None recorded. Imaging bone density 2024 025 [email or web address] [facility] Central Scheduling (Not Breast), [address] [place], [address], 07/07/2025 15:58:58 Medication Orders None recorded. Patient TargetsNo targets recorded. Patient Instructions Encounter Date Encounter Id Patient Instructions Last Modified By Organization Details Last Modified Time 07/07/2025 [id number] advance care planning: care instructions Not available 07/07/2025 15:31:29 Discussed and explained advance directives such as standard forms to the . Face to face discussion lasted for a duration of ___ minutes. Not available 06/18/2025 15:18:07 Reason for Referral None Reported. Problems Name Problem SNOMED Code Status Onset Date Resolution Date Notes Provider Name and Address Organization Details Recorded Time Allergic rhinitis 92605292 Active 2017 Not Available [facility] 4 10:21:53 Gastroeso phageal reflux disease 576245223 Active 2017 Not Available [facility] 4 10:21:53 Diverticu lar disease 016355459 Active 2017 Not Available [facility] 4 10:21:53 Psoriasis 5062608 Active 2017 [facility] Available [facility] 4 10:21:53 Eczema 59968859 Active 2017 Not Available [facility] 4 10:21:53 Strain of hamstring muscle 587973773372 Active 2017 Not Available [facility] 4 10:21:53 Osteoarth ritis of knee 416356946 Active 2017 Not Available [facility] 4 10:21:53 Osteoporo sis 51242941 Active 2020 Not Available [facility] 4 10:21:53 Edema of right lower leg 189259378 Active 2020 Not Available [facility] 4 10:21:53 Lumbago with sciatica 844367714 Active 2021 Not Available [facility] 4 10:21:53 Lumbago with sciatica 939997889 Active 2021 Not Available [facility] 4 10:21:53 Pain of right hip joint 299385980895 102 Active 2021 Not Available [facility] 4 10:21:53 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 24596475 Active 2021 Not Available [facility] 4 10:21:53 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 27738312 Active 2021 Not Available [facility] 4 10:21:52 Edema of lower extremity 950189060 Active 2022 Not Available [facility] 4 10:21:52 Onychomyc osis of toenails 083809504 Active 2022 Not Available [facility] 4 10:21:53 Tinea pedis 3367213 Active 2022 Not Available [facility] 4 10:21:53 Erythrome lalgia 05295779 Active 2022 Not Available [facility] 4 10:21:53 Abscess of skin and/or subcutane ous tissue 40152596 Active 2022 Not Available [facility] 4 10:21:53 Abscess of groin 90476618 Active 2022 Not Available [facility] 4 10:21:53 Abscess 422562293 Active 2022 Not Available [facility] 4 10:21:52 Cobalamin deficienc y 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 Not Available [facility] 4 10:21:52 Umbilical hernia 982189678 Active 2022 Not Available [facility] 4 10:21:53 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 69358176 Active 2023 Willard Thapa DO [address] [place] [address], [phone], [facility] 4 11:40:33 Acute right otitis media 336039245 Active 2024 Willard Thapa DO [address] [place] [address], [phone], [facility] 5 09:15:31 Acute irritant otitis externa 956398182 Active 2024 Willard Thapa DO [address] [place] [address], [address], [facility] 5 12:42:24 Foreign body in right ear 882769775539 432[address] Active 2024 RAFA BOATENG [address] [place] [address], [phone], [facility] 5 14:13:45 Tinnitus of right ear 055451698833 8 Active 2024 RAFA BOATENG [address] [place] [address], [address], [facility] 5 14:14:22 Impacted cerumen in right ear 672566724382 9103 Active 2024 Willard Thapa DO [address] [place] [address], [phone], [facility] 5 13:29:20 Problem Notes None recorded. Procedures Surgical History Date Name Laterality Status Provider Name and Address Organization Details Recorded Time 07/09/20 25 Removal of foreign body in ear canal completed Willard Thapa, DO [address] [facility], [place], [address], [facility] 07/09/2025 13:28:36 11/21/19 15 Colonoscopy completed Rosalinda Lorenz [facility] 11/11/2019 09:04:13 Imaging Results None recorded. Procedure [...] Not available Not available Not available 08/21/2018 [id number] SNOMED Rosalinda Lorenz [facility] Internal [facility] 8 08:27:41 Medications Name Sig Start Date [...] Updated DateTime 5 154.94 cm 45 kg/m2 983441. 98 g 97 % 97 % 68 /min 128/68 mm[Hg] Rissa Manjarrez [facility] 5 14:53:05 Social History Question Answer Notes LastModified by [employer] Details LastModified Time Tobacco Smoking Status Never Smoker Not Available [facility] 08/11/2020 03:36:23 What Is Your Level Of Caffeine Consumption? Moderate 3-4 Cups Coffee Per Day [id number] Information not available 08/11/2020 What Was The Date Of Your Most Recent Tobacco Screening? 07/07/2025 Information not available 07/07/2025 Sex: Unknown Functional Status Question Answer Note LastModified by [employer] Details LastModified Time Do you or have you ever used any other forms of tobacco or nicotine? No Information not available 05/03/2023 What is your level of alcohol consumption? Occasional [id number] Information not available 08/11/2020 What is your exercise level? None [id number] Information not available 08/11/2020 Mental Status None recorded. Family History Nothing Reported. Medical History No medical history recorded. Gynecological HistoryNo gynecological history recorded. Obstetrics History GPAL:G 0 P 0 0 0 0 Immunizations Vaccine Type Date Status Note Provider Nam e and Address Organization Details Recorded Time Influenza, split virus, quadrivalent, preservative 1 completed Not Available formerly [facility] 10/11/2023 10:21:53 COVID-19, mRNA, LNP-S, PF, 100 mcg/0.5mL dose or 50 mcg/0.25mL dose 1 completed Not Available formerly [facility] 10/11/2023 10:21:53 COVID-19, mRNA, LNP-S, PF, 100 mcg/0.5mL dose or 50 mcg/0.25mL dose 2 completed Not Available formerly [facility] 10/11/2023 10:21:53 Influenza, split virus, quadrivalent, preservative 8 completed Not Available formerly [facility] 10/11/2023 10:21:53 influenza nasal, unspecified formulation 2 completed Not Available formerly [facility] 10/11/2023 10:21:54 influenza, unspecified formulation 4 completed Willard Thapa DO [address] [place] [address], [address], [facility] 07/07/2025 15:27:29 Pneumococcal Conjugate, unspecified formulation 2 completed Willard Thapa DO [address] [place] [address], [phone], [facility] 07/07/2025 15:28:35 Influenza, split virus, quadrivalent, preservative 9 completed Not Available formerly [facility] 10/11/2023 10:21:53 COVID-19, mRNA, LNP-S, PF, 100 mcg/0.5mL dose or 50 mcg/0.25mL dose 1 completed Not Available formerly [facility] 10/11/2023 10:21:53 COVID-19, mRNA, LNP-S, PF, 100 mcg/0.5mL dose or 50 mcg/0.25mL dose 1 completed Not Available formerly [facility] 10/11/2023 10:21:53 Past Encounters Encounter ID Performer Location Encounter Start Date Encounter Closed Date Diagnosis/Indication Diagnosis SNOMED-CT Code Diagnosis ICD10 Code Diagnosis IMO Codes Diagnosis Note [id number] Willard Thapa DO [facility] [address] [facility],[place] [address] 06/24/2025 09:47:38 06/24/2025 12:57:32 Pre-surgery evaluation 674896719 Z01.818 Per the 2017 ACC cardiac risk stratifica tion this patient is cleared for the proposed cataract procedure and is a low risk . Patient understand s to take her usual medication s on the day of her procedure . Depression screening 171 821276 Z13.31 negative PHQ2 [id number] Willard Thapa DO [facility] [address] [facility],[place] [address] 07/07/2025 14:38:44 07/07/2025 15:58:58 Screening for cardiovascular system disease 845255429 Z13.6 Screening for malignant neoplasm of colon 562139874 Z12.11 Screening for osteoporosis 791740981 Z13.820 Screening mammography 24 099705 Z12.31 done february 17 Depression screening 171 106227 Z13.31 negative PHQ2 Preventive procedure 169 662943 Z00.00 51479427 doing well arthritis is still a prob noted her right thumb as dislocated Health Concerns Section Related Observation LastModified by Organization Detai ls LastModified Time None Recorded Concern Status LastModified by Organization Details LastModified Time None Recorded Payers Encounter Date Sequence Insurance Name Policy Number Policy Michael Covered Member ID Michael Member ID Guarantor Name 07/07/2025 2 [place] [id number] Tara Arel [id number] Tara Cueto Arel 07/07/2025 1 [place] [employer] Tara Cueto Arel [id number] Tara Cueto Areoli Notes Date Note Type Note Provider Name a nd Address Organization Details Recorded Time 5 text/html Medicare Annual Wellness VisitReported by [...] home.ROS as noted in the HPI Willard Thapa, DO [address] [facility], [place], [address], [facility] 07/07/2025 15:34:18 OBGyn Episode No OBEpisode recorded.
--- OUTSIDE RECORDS SUMMARY | 2025-07-09 18:18 | XMS_ITS | Encounter Summary ---
Author Organization [facility] Address [address] [place] [address] Phone Care Team Providers Care Optical Effects Camera Operator Name Role Phone Willard Munoz DO Unavailable Bigda, Willard Teo DO Unavailable Bigda, Willard Teo DO Primary Care Provider [phone] Encounter Details Date Type Department Care Team (Late st Contact Info) Description 07/08/2025 Transcribe Orders Virtual Department [address] [place] [address] Willard Munoz, DO [address] [facility] [place] [address] [place] [address] Encounter for screening for osteoporosis (Primary Dx) Social History Tobacco Use Types [...] your housing situation today? I have diana cordero 03/01/2025 How many times have you move [...] of this encounter Plan of Treatment Scheduled Orders Name Type Priority Associated Diagnoses Orde r Schedule DXA Screening Imaging Routine Encounter for screening for osteoporosis Expected: 08/07/2025, Expires: 07/08/2026 documented as of this encounter Visit Diagnoses Diagnosis Encounter for screening for osteoporosis- Primary documented in this encounter Care Teams Optical Effects Camera Operator Relationship Specialty Start Date End Date Willard Munoz DO [address] [place] [address] PCP - General Internal Medicine 03/01/25 Willard Munoz DO Historical LMR Provider 07/24/17 Willard Munoz TeoDO Internal Medicine 08/02/17 documented as of this encounter Additional Source Comments The information contained in this document represents components of the legal health record. It is not the complete legal health record.[facility]
--- OUTSIDE RECORDS SUMMARY | 2025-07-09 18:18 | XMS_ITS | Encounter Summary ---
Author Organization [facility] Address [address] [place] [address] [place] [address] Phone Care Team Providers Care Aerophysics Engineer Name Role Phone Carlos Eduardodarryl Willard Teo DO Unavailable Deb Aguilera FRANCHISE DEVELOPMENT MANAGER Unavailable Vanessa Oviedo MD Unavailable Amairani Jaimes RDCS Unavailable [email or web address] Tammy Willard Teo DO Unavailable Willard Munoz Teo DO Primary Care Provider [phone] Willard Munoz Teo DO Primary Care Provider [phone] Encounter Details Date Type Department Care Team (Late st Contact Info) Description 07/26/2021 Transcribe Orders Virtual Department [address] [place] [address] Willard Munoz DO [address] [place] [address] Localized edema (Primary Dx) Social History Tobacco Use Types [...] as of this encounter Visit Diagnoses Diagnosis Localized edema- Primary Edema documented in this encounter Care Teams Aerophysics Engineer Relationship Specialty Start Date End Date TammyWillardDO PCP - General Internal Medicine 08/02/17 02/28/25 Willard Munoz DO [address] [place] [address] PCP - General Internal Medicine 03/01/25 Willard Munoz DO Historical LMR Provider 07/24/17 Deb Aguilera NP 21 [place] [address] [email or web address] Historical LMR Provider 07/24/17 2 Vanessa Oviedo MD [address] [address] Historical LMR Provider 07/24/17 10/16/21 Amairani Jaimes, NAA Historical LMR Provider 07/24/17 10/16/21 Willard Munoz DO Internal Medicine 08/02/17 documented as of this encounter Additional Source Comments The information contained in this document represents components of the legal health record. It is not the complete legal health record.[facility]
--- OUTSIDE RECORDS SUMMARY | 2025-07-09 18:18 | XMS_ITS | Encounter Summary ---
Author Organization [facility] Address [address] [place] [address] [place] [address] Phone Care Team Providers Care [employer] French Teacher Name Role Phone Willard Munoz DO Unavailable Deb Aguilera DATA ENTRY COORDINATOR Unavailable Vanessa Oviedo MD Unavailable Amairani Jaimes RDCS Unavailable [email or web address] Willard Munoz DO Unavailable Tammy Willard Teo DO Primary Care Provider [phone] Carlos EduardodaWillard DO Primary Care Provider [phone] Reason for Referral * Physical Therapy (Elective) - Closed Specialty Diagnoses / Procedures Referred By Josr rogers Referred To Contact Physical Therapy Diagnoses Encounter for rehabilitation Before Surgery Right Knee 03/31/2021 Adan Palencia MD [address] [place] [address] Phone: tel: fax: [address] [address] Phone: tel: Referral ID Status Reason Start Date Expiration Date Visits Re quested Visits Authorized [id number] Closed 03/31/2021 10/08/2021 1 1 Encounter Details Date Type Department Care Team (Latest Contact Info) Description 03/31/2021 Transcribe Orders [facility] [address] [place] [address] Adan Palencia MD [address] [facility] [address] [place] [address] Encounter for rehabilitation (Primary Dx) Social History [...] on file documented as of this encounter Procedures Procedure Name Priority Date/Time Associated Diagnosis Comments AMB REFERRAL TO [facility] PHYSICAL THERAPY Routine 04/02/2021 12:36 PM EDT Encounter for rehabilitation documented in this encounter Results * Ambulatory referral to [facility] Physical Therapy (04/02/2021 12:36 PM EDT) Other us Adan Palencia MD AMB [facility] REFERRALS Final R esult documented in this encounter Visit Diagnoses Diagnosis Encounter for rehabilitation- Primary documented in this encounter Care Teams [employer] French Teacher Relationship Specialty Start Date End Date Willard Munoz DO PCP - General Internal Medicine 08/02/17 02/28/25 Willard Munoz DO [address] [place] [address] PCP - General Internal Medicine 03/01/25 Willard Munoz DO Historical LMR Provider 07/24/17 Deb Aguilera NP 21 [place] [address] [email or web address] Historical LMR Provider 07/24/17 2 Vanessa Oviedo MD [address] [place] [address], [facility] [address] [place] [address] Historical LMR Provider 07/24/17 10/16/21 Amairani Jaimes, NAA [email or web address] Historical LMR Provider 07/24/17 10/16/21 Willard Munoz DO [email or web address] Internal Medicine 08/02/17 documented as of this encounter Additional Source Comments The information contained in this document represents components of the legal health record. It is not the complete legal health record.[facility]
--- OUTSIDE RECORDS SUMMARY | 2025-07-09 18:18 | XMS_ITS | Encounter Summary ---
Author Organization [facility] Address [address] [place] [address] Drive [address] [place] [address] Phone Care Team Providers Care Clearing Supervisor Name Role Phone Willard Munoz DO Unavailable Deb Aguilera MEDICAL INSURANCE CLAIMS PROCESSOR Unavailable Vanessa Oviedo MD Unavailable Amairani Jaimes RDCS Unavailable [email or web address] Willard Munoz DO Unavailable Willard Munoz DO Primary Care Provider [phone] Willard Munoz DO Primary Care Provider [phone] Encounter Details Date Type Department Care Team (Late st Contact Info) Description 02/09/2021 Procedure Pass [facility], [address] [address] Social History Tobacco Use Types Packs/Day Years [...] on filedocumented in this encounter Care Teams Clearing Supervisor Relationship Specialty Start Date End Date Willard Munoz DO PCP - General Internal Medicine 08/02/17 02/28/25 Willard Munoz DO [address] [place] [address] PCP - General Internal Medicine 03/01/25 Willard Munoz DO Historical LMR Provider 07/24/17 Deb Aguilera MEDICAL INSURANCE CLAIMS PROCESSOR 21 [place] [address] [email or web address] Historical LMR Provider 07/24/17 2 Vanessa Oviedo MD 22 [facility] [address] [place] [address] Historical LMR Provider 07/24/17 10/16/21 Amairani Jaimes, NAA Historical LMR Provider 07/24/17 10/16/21 Willard Munoz DO Internal Medicine 08/02/17 documented as of this encounter Additional Source Comments The information contained in this document represents components of the legal health record. It is not the complete legal health record.[facility]
--- OUTSIDE RECORDS SUMMARY | 2025-07-09 18:18 | XMS_ITS | Continuity of Care Document ---
Author Organization [facility] Address [address] [facility] [place] [address] [place] [address] Assessment Encounter Date Assessment Date Assessment LastModified by Organization Details LastModified Time 07/09/2025 07/09/2025 [id number] [place] [id number] (FIELD AUDITOR) : MDM LOW MUST MEET 2 OF [...] Not available Not available Not available Lab None recorded. Referral None recorded. Procedures cerumen removal using irrigatio n (PROC) 2024 025 Not available 07/09/2025 13:55:06 cerumen removal (PROC) 2024 025 Not available 07/09/2025 13:55:07 Surgeries None recorded. Imaging None recorded. Medication Orders doxycycli ne hyclate [address] [facility], [address] [place], [address], 07/09/2025 13:32:28 Patient TargetsNo targets recorded. Patient Instructions Encounter Date Encounter Id Patient Instructions Last Modified By Organization Details Last Modified Time 07/09/2025 [id number] earwax blockage in children: care instructions Not available 07/09/2025 13:32:25 Reason for Referral None Reported. Problems Name Problem SNOMED Code Status Onset Date Resolution Date Notes Provider Name and Address Organization Details Recorded Time Allergic rhinitis 79233047 Active 2017 Not Available [facility] 4 10:21:53 Gastroeso phageal reflux disease 281091477 Active 2017 Not Available [facility] 4 10:21:53 Diverticu lar disease 786357191 Active 2017 Not Available [facility] 4 10:21:53 Psoriasis 8970612 Active 2017 Not Available [facility] 4 10:21:53 Eczema 59567031 Active 2017 Not Available [facility] 4 10:21:53 Strain of hamstring muscle 696134498054 Active 2017 Not Available [facility] 4 10:21:53 Osteoarth ritis of knee 824937642 Active 2017 Not Available [facility] 4 10:21:53 Osteoporo sis 40878754 Active 2020 Not Available [facility] 4 10:21:53 Edema of right lower leg 102953398 Active 2020 Not Available [facility] 4 10:21:53 Lumbago with sciatica 408736758 Active 2021 Not Available [facility] 4 10:21:53 Lumbago with sciatica 285382386 Active 2021 Not Available [facility] 4 10:21:53 Pain of right hip joint 537760355111 102 Active 2021 Not Available [facility] 4 10:21:53 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 89540059 Active 2021 Not Available [facility] 4 10:21:53 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 46426841 Active 2021 Not Available [facility] 4 10:21:52 Edema of lower extremity 921665469 Active 2022 Not Available [facility] 4 10:21:52 Onychomyc osis of toenails 110791093 Active 2022 Not Available [facility] 4 10:21:53 Tinea pedis 2566670 Active 2022 Not Available [facility] 4 10:21:53 Erythrome lalgia 19422774 Active 2022 Not Available [facility] 4 10:21:53 Abscess of skin and/or subcutane ous tissue 52385538 Active 2022 Not Available [facility] 4 10:21:53 Abscess of groin 14664326 Active 2022 Not Available [facility] 4 10:21:53 Abscess 364416795 Active 2022 Not Available [facility] 4 10:21:52 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 Not Available [facility] 4 10:21:52 Umbilical hernia 756265994 Active 2022 Not Available [facility] 4 10:21:53 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 84539078 Active 2023 Willard Thapa DO [address] [place] [address], [address], [facility] 4 11:40:33 Acute right otitis media 353276570 Active 2024 Willard Thapa DO [address] [place] [address], [address], [facility] 5 09:15:31 Acute irritant otitis externa 876985304 Active 2024 Willard Thapa DO [address] [place] [address], [address], [facility] 5 12:42:24 Foreign body in right ear 727704981626 16896 Active 2024 RAFA BOATENG [address] [place] [address], [address], [facility] 5 14:13:45 Tinnitus of right ear 151929322063 8 Active 2024 RAFA BOATENG [address] [place] [address], [address], [facility] 5 14:14:22 Impacted cerumen in right ear 365883454665 9103 Active 2024 Willard Thapa DO [address] [place] [address], [address], [facility] 5 13:29:20 Problem Notes None recorded. Procedures Surgical History Date Name Laterality Status Provider Name and Address Organization Details Recorded Time 07/09/20 25 Removal of foreign body in ear canal completed Willard Thapa DO [address] [place] [address], [address], [facility] 07/09/2025 13:28:36 11/21/19 15 Colonoscopy completed Rosalinda Lorenz [facility] 11/11/2019 09:04:13 Imaging Results [...] Not available Not available Not available 08/21/2018 [id number] SNOMED Rosalinda Lorenz [facility] 8 08:27:41 Medications Name Sig Start [...] Not Available Not Available Not Available Vitals None Recorded Social History Question Answer Notes LastModified by Organizat ion Details LastModified Time Tobacco Smoking Status Never Smoker Not Available [facility] 08/11/2020 03:36:23 What Is Your Level Of Caffeine Consumption? Moderate 3-4 Cups Coffee Per Day [id number] Information not available 08/11/2020 What Was The Date Of Your Most Recent Tobacco Screening? 07/07/2025 Information not available 07/07/2025 Sex: Unknown Functional Status Question Answer Note LastModified by Organizat ion Details LastModified Time Do you or have you ever used any other forms of tobacco or nicotine? No [email or web address] Information not available 05/03/2023 What is your level of alcohol consumption? Occasional [id number] Information not available 08/11/2020 What is your exercise level? None [id number] Information not available 08/11/2020 Mental Status None recorded. Family History Nothing Reported. Medical History No medical history recorded. Gynecological HistoryNo gynecological history recorded. Obstetrics History GPAL:G 0 P 0 0 0 0 Immunizations Vaccine Type Date Status Note Provider Nam e and Address Organization Details Recorded Time Influenza, split virus, quadrivalent, preservative 1 completed Not Available [facility] 10/11/2023 10:21:53 COVID-19, mRNA, LNP-S, PF, 100 mcg/0.5mL dose or 50 mcg/0.25mL dose 1 completed Not Available [facility] 10/11/2023 10:21:53 COVID-19, mRNA, LNP-S, PF, 100 mcg/0.5mL dose or 50 mcg/0.25mL dose 2 completed Not Available [facility] 10/11/2023 10:21:53 Influenza, split virus, quadrivalent, preservative 8 completed Not Available [facility] 10/11/2023 10:21:53 influenza nasal, unspecified formulation 2 completed Not Available [facility] 10/11/2023 10:21:54 influenza, unspecified formulation 4 completed Willard Thapa, DO [address] [place] [address], [place], [address], [facility] 07/07/2025 15:27:29 Pneumococcal Conjugate, unspecified formulation 2 completed Willard Thapa DO [address] [facility], [place], [address], [facility] 07/07/2025 15:28:35 Influenza, split virus, quadrivalent, preservative 9 completed Not Available [facility] 10/11/2023 10:21:53 COVID-19, mRNA, LNP-S, PF, 100 mcg/0.5mL dose or 50 mcg/0.25mL dose 1 completed Not Available [facility] 10/11/2023 10:21:53 COVID-19, mRNA, LNP-S, PF, 100 mcg/0.5mL dose or 50 mcg/0.25mL dose 1 completed Not Available [facility] 10/11/2023 10:21:53 Past Encounters Encounter ID Performer Location Encounter Start Date Encounter Closed Date Diagnosis/Indication Diagnosis SNOMED-CT Code Diagnosis ICD10 Code Diagnosis IMO Codes Diagnosis Note [id number] Willard Thapa DO [facility] [address] [facility],[place] [address] 06/24/2025 09:47:38 06/24/2025 12:57:32 Pre-surgery evaluation 723014970 Z01.818 Per the 2017 ACC cardiac risk stratifica tion this patient is cleared for the proposed cataract procedure and is a low risk . Patient understand s to take her usual medication s on the day of her procedure . Depression screening 171 995260 Z13.31 negative PHQ2 [id number] Willard Thapa DO [facility] [address] [facility],[place] [address] 07/07/2025 14:38:44 07/07/2025 15:58:58 Screening for cardiovascular system disease 517196287 Z13.6 Screening for malignant neoplasm of colon 430440021 Z12.11 Screening for osteoporosis 733210279 Z13.820 Screening mammography 24 481491 Z12.31 done february 17 Depression screening 171 049209 Z13.31 negative PHQ2 Preventive procedure 169 285372 Z00.00 75734372 doing well arthritis is still a prob noted her right thumb as dislocated [id number] Willard Thapa DO [facility] [address] [facility],[place] [address] 07/09/2025 08:50:19 07/09/2025 13:35:14 Impacted cerumen in right ear 8634407135 678615 H61.21 673265 TM looks infectred we will need to [...] Name 07/09/2025 2 [place] [id number] Tara Arel [id number] Tara Cueto Arel 07/09/2025 1 MEDIC[place]: [facility] [employer] Tara Cueto Arel [id number] Tara Cueto Arel Notes Date Note Type Note Provider Name a nd Address Organization Details Recorded Time 07/09/2025 text/html ROS as noted in the HPI here for ear irrigation since she is havibng ongoing discomfort tyo her right ear againstill sore there had been debris in eac Willard Thapa DO [address] [facility], [place], [address], [facility] 07/09/2025 13:33:20 OBGyn Episode No OBEpisode recorded.
--- OUTSIDE RECORDS SUMMARY | 2025-07-09 18:18 | XMS_ITS | Encounter Summary ---
Author Organization [facility] Address [address] [place] [address] [place] [address] Phone Care Team Providers Care Oil Well Fishing Tool Operator Name Role Phone Willard Munoz DO Unavailable Deb Aguilera WATER RECLAMATION SYSTEMS OPERATOR Unavailable Vanessa Oviedo MD Unavailable Amairani Jaimes RDCS Unavailable [email or web address] Willard Munoz DO Unavailable Bigda, Willard Bruce DO Primary Care Provider [phone] Bigda, Willard Bruce DO Primary Care Provider [phone] Encounter Details Date Type Department Care Team (Late st Contact Info) Description 08/02/2017 Ancillary Orders [facility] [address] [place] [address] Blane Gay MD [address] [facility], [address] [place] [address] Social History Tobacco Use Types Packs/Day Years Used Date Smoking Tobacco: Never Assessed Comments Unknown Sex and Gender Information Value Date Recorded Sex Assigned at Not on file Legal Sex Female 10:06 PM EDT Gender Identity Not on file Sexual Orientation Straight 11/17/2021 10 :25 AM EST documented as of this encounter Plan of Treatment Not on file documented as of this encounter Visit Diagnoses Not on filedocumented in this encounter Care Teams Oil Well Fishing Tool Operator Relationship Specialty Start Date End Date Willard Munoz DO PCP - General Internal Medicine 08/02/17 02/28/25 Willard Munoz DO [address] [facility] [place] [address] PCP - General Internal Medicine 03/01/25 Willard Munoz DO Historical LMR Provider 07/24/17 Deb Aguilera NP [address] [place] [address] [email or web address] Historical LMR Provider 07/24/17 2 Vanessa Oviedo MD [address] [address] Historical LMR Provider 07/24/17 10/16/21 Amairani Jaimes, RDCS Historical LMR Provider 07/24/17 10/16/21 Willard Munoz DO Internal Medicine 08/02/17 documented as of this encounter Additional Source Comments The information contained in this document represents components of the legal health record. It is not the complete legal health record.[facility]
--- OUTSIDE RECORDS SUMMARY | 2025-07-09 18:18 | XMS_ITS | Encounter Summary ---
Author Organization [facility] Address [address] [place] [id number] Phone Care Team Providers Care Nuclear Criticality Safety Engineer Name Role Phone Willard Munoz DO Unavailable Deb Aguilera POLITICAL ORGANIZER Unavailable Vanessa Oviedo MD Unavailable Amairani Jaimes RDCS Unavailable [email or web address] Willard Munoz DO Unavailable Bigdarryl, Willard Bruce DO Primary Care Provider [phone] Bigda Willard Bruce DO Primary Care Provider [phone] Encounter Details Date Type Department Care Team (Late st Contact Info) Description 08/02/2017 Ancillary Orders Virtual Department [address] [place] [address] Blane Gay MD [address] [facility], [address] [place] [address] [email or web address] Breast screening Social History Tobacco Use Types [...] MAMMOGRAM SCREENING WITH TOMOSYNTHESIS WITH CAD (BILATERAL) (09/14/2017 2:51 PM EST) Anatomical Region Laterality Modality Breast Left, Breast Right, Breast Bilateral Bila teral Mammography 09/15/2017 7:46 AM EST Impressions 09/15/2017 7:50 AM EST No mammographic change indicative of malignancy. Routine screening is recommended. BI-RADS CATEGORY: 2 - Benign finding. DENSITY: There are scattered fibroglandular densities. POS - [id number] Narrative 09/15/2017 7:50 AM EST FINDINGS: Bilateral full-field digital screening mammography is obtained and read in conjunction with computer-aided detection. 3-D tomosynthesis as well as 2-D C view imaging is also performed. Comparison includes the most recent exam from 09/08/2016 and as far back as 08/15/2011. Breasts are composed of scattered fibroglandular tissue. Vascular calcifications and other scattered benign-appearing calcifications bilaterally. Stable fibroglandular asymmetry at the 12 o'clock position on the left. No new dominant mass, suspicious microcalcifications, architectural distortion, focal skin thickening, or new asymmetry is detected. Procedure Note Дмитрий Tran MD - 09/15/2017 FINDINGS: Bilateral full-field digital screening mammography is obtained and read inconjunction with computer-aided detection. 3-D tomosynthesis as well as2-D C view imaging is also performed. Comparison includes the most recentexam from 09/08/2016 and as far back as 08/15/2011. Breasts are composed of scattered fibroglandular tissue. Vascularcalcifications and other scattered benign-appearing calcificationsbilaterally. Stable fibroglandular asymmetry at the 12 o'clock positionon the left. No new dominant mass, suspicious microcalcifications,architectural distortion, focal skin thickening, or new asymmetry isdetected. IMPRESSION: No mammographic change indicative of malignancy. Routine screening isrecommended. BI-RADS CATEGORY: 2 - Benign finding. DENSITY: There are scattered fibroglandular densities. POS - [id number] Blane Gay MD IMG MG EXAMS Final Result documented in this encounter Visit Diagnoses Diagnosis Breast screening Breast screening, unspecified Breast screening Breast screening, unspecified documented in this encounter Care Teams Nuclear Criticality Safety Engineer Relationship Specialty Start Date End Date Willard Munoz DO PCP - General Internal Medicine 08/02/17 02/28/25 Willard Munoz DO [address] [place] [address] PCP - General Internal Medicine 03/01/25 Willard Munoz DO Historical LMR Provider 07/24/17 Deb Aguilera NP [address] [place] [address] [email or web address] Historical LMR Provider 07/24/17 2 Vanessa Oviedo MD [address] [address] Historical LMR Provider 07/24/17 10/16/21 Amairani Jaimes, RDCS Historical LMR Provider 07/24/17 10/16/21 Willard Munoz DO Internal Medicine 08/02/17 documented as of this encounter Additional Source Comments The information contained in this document represents components of the legal health record. It is not the complete legal health record.[facility]
[2025-07-09 19:38] LABS: Alanine Aminotransferase 19 U/L (0-31); Albumin Level 4.4 g/dL (3.5-5.0); Alkaline Phosphatase 80 U/L (39-117); Anion Gap 14 (12-20); Aspartate Amino Transferase 43 U/L (5-31); Blood Urea Nitrogen 12 mg/dL (9-16); Calcium 9.6 mg/dL (8.4-10.2); Carbon Dioxide 23 mmol/L (22-29); Chloride 111 mmol/L (96-108); Cholesterol 247 mg/dL (<200); Estimated Glomerular Filt Rate 60; HDL Cholesterol 64 mg/dL (>40); Potassium 4.6 mmol/L (3.3-5.1); Sodium 143 mmol/L (135-145); Total Protein 7.1 g/dL (6.5-8.0); Triglycerides 170 mg/dL (<150)
[2025-07-09 19:39] LABS: Hematocrit 45.1 % (37.0-47.0); Hemoglobin 14.8 g/dl (12.0-16.0); Imm Gran Abs Auto 0.01 X10*3/uL (0.00-0.03); Imm Gran Pct Auto 0.3 % (0.0-0.4); Lymphocytes Absolute Auto 1.3 X10*3/uL (1.2-4.9); Mean Corpuscular HGB Conc 32.8 g/dl (31.0-35.0); Mean Corpuscular Hemoglobin 31.6 pg (27.0-33.0); Mean Corpuscular Volume 96.4 fL (80.0-98.0); NRBC Abs Auto 0.000 X10*3/uL (0.0-0.012); NRBC Pct Auto 0.0 /100WBC (0.0-0.2); Platelet Count 266 X10*3/uL (160-400); Red Blood Count 4.68 X10*6/uL (4.20-5.50); White Blood Count 3.9 X10*3/uL (4.8-10.8)
[2025-07-09 20:15] LABS: Folate 12.2 ng/mL (> or = 4.0); Vitamin B12 345 pg/mL (200-900)
== END 2025-07-09 18:15 | disposition home or self-care (01) ==
LOC: HO.LNP 18:14
PROVIDERS: Visit Provider Internal Medicine
DX: Z00.00 Encounter for general adult medical examination without abnormal findings (principal); Z13.6 Encounter for screening for cardiovascular disorders
CPT/HCPCS: 80053; 80061; 82607; 82746; 85025